=== PATIENT | female | born 1930 | race African-American/Black ===

== ENCOUNTER 2017-08-08 13:22 | Inpatient (IN) | payer MEDICARE, MEDICAID ==
[2017-08-08] VITALS (8 sets, daily range): BP systolic 105–159; BP diastolic 61–97
[~2017-08-08] VITALS: Ht 154.9 cm; Wt 54.4 kg
[2017-08-08] MEDS ORDERED: dilTIAZem HCl 25mg/5ml Inj IV ONE ×3 (14:00→17:30)
[2017-08-08 14:24] LABS: BASOPHILS % (AUTO) 1.1 % (0.0-2.0); EOSINOPHILS % (AUTO) 1.2 % (0.0-3.0); LYMPHOCYTES % (AUTO) 25.2 % (20.0-45.0); MEAN CORPUSCULAR HEMOGLOBIN 25.3 PG (27.0-31.0); MEAN CORPUSCULAR HGB CONC 30.4 G/DL (32.0-36.0); MEAN CORPUSCULAR VOLUME 83 FL (80-99); MONOCYTES % (AUTO) 5.4 % (1.0-10.0); NEUTROPHILS % (AUTO) 67.1 % (45.0-75.0); PLATELET COUNT 202 K/UL (150-450); RED BLOOD COUNT 5.95 M/UL (4.20-5.40); RED CELL DISTRIBUTION WIDTH 15.2 % (11.6-14.8); WHITE BLOOD COUNT 7.8 K/UL (4.8-10.8)
[2017-08-08 14:41] LABS: TROPONIN I < 0.30 ng/mL (<=0.30)
[2017-08-08] MEDS ORDERED: Mylanta II UD 30ml ORAL PRN (15:30)
[2017-08-08] MEDS ORDERED: LORazepam Inj 2mg/ml 1ml IV PRN (15:30)
[2017-08-08] MEDS ORDERED: Morphine Sulfate 2mg/ml Inj IVP PRN (15:30)
--- NOTE | 2017-08-08 15:58 | Diagnostic Imaging Report ---
Indication: SOB Technique: One view of the chest Comparison: none Findings: Lungs and pleural space are clear. Heart is enlarged. The aorta is calcified Impression: Cardiomegaly. No acute process
--- NOTE | 2017-08-08 16:01 | Emergency Room Report ---
History of Present Illness General Chief Complaint: Eye Problems Present Illness HPI This is a 86-year-old female who presented after increased left eye swelling and pain. The patient had prior history of dementia. Patient was sent in from [facility] for further evaluation. Patient had prior history of slight confusion. Patient is normally oriented x2 patient was noted to have a rapid heartbeat. She is normally a resident [facility]. Allergies: Coded Allergies: No Known Allergies (Unverified , 08/08/17) Patient History Reviewed Nursing Documentation: PMH: Agreed, PSxH: Agreed Nursing Documentation-PMH Hx Cardiac Problems: No - CHRONIC KIDNEY DISEASE Hx Hypertension: Yes Hx COPD: Yes History Of Psychiatric Problem: Yes Hx Cerebrovascular Accident: No - GERD Review of Systems All Other Systems: negative except mentioned in HPI Physical Exam Vital Signs Date Time Temp Pulse Resp B/P (MAP) Pulse Ox O2 Delivery O2 Flow Rate FiO2 08/08/17 13:10 97.3 104 16 131/86 98 Room Air Sp02 EP Interpretation: reviewed, normal General Appearance: normal inspection, alert, thin, Chronically Ill Head: atraumatic Eyes: bilateral eye other - nonreactive left pupil to left eye, with corneal erthema ENT: normal ENT inspection, hearing grossly normal, normal voice Neck: normal inspection, full range of motion, supple, no bony tend Respiratory: normal inspection, lungs clear, normal breath sounds, no respiratory distress, no retraction, no wheezing Cardiovascular #1: no edema, tachycardia Gastrointestinal: normal inspection, normal bowel sounds, non tender, soft, no guarding, no hernia Genitourinary: no CVA tenderness Musculoskeletal: normal inspection, back normal, normal range of motion Neurologic: normal inspection, alert, responsive, speech normal Psychiatric: normal inspection, judgement/insight normal, mood/affect normal Skin: normal inspection, normal color, no rash Medical Decision Making Diagnostic Impression: Primary Impression: Atrial fibrillation with RVR Additional Impression: Redness of left eye ER Course The patient presented for left eye redness and swelling. The patient is also noted to be in atrial fibrillation with rapid ventricular response. Differential diagnosis included but wasn't limited to glaucoma, iritis, corneal abrasion, bacterial conjunctivitis, viral conjunctivitis. Differential diagnosis included was not limited to myocardial infarction, congestive heart failure, dehydration among others.Because of complexity of patient's case laboratory testing and imaging studies were ordered. The patient was given IV Cardizem for atrial fibrillation chest x-ray one view read by radiologist showed lung and pleural space is clear with enlarged cardiac silhouette calcified aorta. The patient was noted to have some improvement in her great after a Cardizem however continued to be tachycardic intermittently Dr. Swapna Welch was contacted for inpatient management. Labs Test 08/08/17 14:12 White Blood Count 7.8 K/UL (4.8-10.8) Red Blood Count 5.95 M/UL (4.20-5.40) Hemoglobin 15.1 G/DL (12.0-16.0) Hematocrit 49.5 % (37.0-47.0) Mean Corpuscular Volume 83 FL (80-99) Mean Corpuscular Hemoglobin 25.3 PG (27.0-31.0) Mean Corpuscular Hemoglobin Concent 30.4 G/DL (32.0-36.0) Red Cell Distribution Width 15.2 % (11.6-14.8) Platelet Count 202 K/UL (150-450) Mean Platelet Volume 9.0 FL (6.5-10.1) Neutrophils (%) (Auto) 67.1 % (45.0-75.0) Lymphocytes (%) (Auto) 25.2 % (20.0-45.0) Monocytes (%) (Auto) 5.4 % (1.0-10.0) Eosinophils (%) (Auto) 1.2 % (0.0-3.0) Basophils (%) (Auto) 1.1 % (0.0-2.0) Troponin I < 0.30 ng/mL (<=0.30) EKG Diagnostic Results Rate: tachycardiac Rhythm: other - atrial Last Vital Signs Date Time Temp Pulse Resp B/P (MAP) Pulse Ox O2 Delivery O2 Flow Rate FiO2 08/08/17 15:33 97.3 123 22 144/93 99 Room Air Status: unchanged Disposition: ADMITTED INPATIENT Condition: Serious Referrals: JENINFER WELCH (PCP) Cory Hernandez Aug 08, 2017 16:01
[2017-08-08 17:16] LABS: ALANINE AMINOTRANSFERASE 12 U/L (3-33); ALBUMIN/GLOBULIN RATIO 1.2 (1.0-2.7); ANION GAP 11 (5-15); ASPARTATE AMINO TRANSFERASE 18 U/L (5-40); CALCIUM 9.6 mg/dL (8.6-10.2); CARBON DIOXIDE 27 mEQ/L (20-30); CHLORIDE 97 mEQ/L (98-107); HEMOLYSIS 143; LIPASE 27 U/L (< 60); POTASSIUM 4.9 mEQ/L (3.4-4.9); SODIUM 135 mEQ/L (135-145); TOTAL PROTEIN 6.8 g/dL (6.6-8.7)
[2017-08-08 17:27] LABS: CKMB < 1.5 ng/mL (< 3.8)
[2017-08-08] MEDS ORDERED: Brimonidine 0.2% Opth Sol LEFT EYE ONE (17:30)
[2017-08-08] MEDS ORDERED: Pred Forte 1% Opth Susp 1ml LEFT EYE ONE ×2 (17:30→21:00)
[2017-08-08 17:55] LABS: APPEARANCE,URINE SLIGHTLY CLOUDY; KETONES,URINE NEGATIVE (NEGATIVE); LEUKOCYTE ESTERASE ,URINE 1+ (NEGATIVE); NITRITE,URINE NEGATIVE (NEGATIVE); PH,URINE 5 (4.5-8.0); PROTEIN,URINE NEGATIVE (NEGATIVE); UROBILINOGEN,URINE NORMAL MG/DL (0.0-1.0)
[2017-08-08] MEDS ORDERED: acetaZOLAMIDE 500mg Inj IVP ONE (18:00)
[2017-08-08] MEDS ORDERED: Dorzolamide 2% 10ml Btl LEFT EYE ONE (18:00)
[2017-08-08] MEDS ORDERED: Timolol 0.5% Op Soln 2.5ml LEFT EYE SCH (18:00)
--- NOTE | 2017-08-08 18:03 | Consultation ---
Consult Note Consult Note Ophthalmology Emergency Room Consultation Referring Physician: Felipe Bacon/ Remington Hernandez Reason for Consultation: Red eye History of the present illness: The patient is 86-year-old woman who [facility] for possible conjunctivitis. She was found to be in atrial fibrillation with a rapid response and therefore admitted to [facility]. She notes some recent discomfort in her left eye and blurred vision. Past medical Hx: chronic kidney disease Medications: Current Medications Medications (Trade) Dose Ordered Sig/David Route PRN Reason Start Time Stop Time Status Last Admin Dose Admin Acetaminophen (Tylenol) 650 mg Q4H PRN ORAL fever>100.5 08/08/17 15:30 09/07/17 15:29 Al Hydroxide/Mg Hydroxide (Mylanta II) 30 ml Q6H PRN ORAL dyspepsia 08/08/17 15:30 09/07/17 15:29 Atropine Sulfate (Atropine Opth Daphnie) 1 drop QID LEFT EYE 08/08/17 21:00 09/07/17 20:59 UNV Brimonidine Tartrate (Alphagan) 1 drop TID ONCE LEFT EYE 08/08/17 18:15 08/08/17 18:16 UNV Dextrose (Dextrose 50%) STAT PRN IV Hypoglycemia 08/08/17 15:30 09/07/17 15:29 Dorzolamide HCl (Trusopt) 1 drop THREE TIMES A DAY LEFT EYE 08/08/17 18:15 09/07/17 18:14 UNV Lorazepam (Ativan 2mg/ml 1ml) 0.5 mg Q4H PRN IV For Anxiety 08/08/17 15:30 08/15/17 15:29 Morphine Sulfate (Morphine Sulfate) 1 mg Q4H PRN IVP For Pain 08/08/17 15:30 08/15/17 15:29 Ondansetron HCl (Zofran) 4 mg Q6H PRN IVP Nausea & Vomiting 08/08/17 15:30 09/07/17 15:29 Polyethylene Glycol (Miralax) 17 gm HSPRN PRN ORAL Constipation 08/08/17 21:00 09/07/17 20:59 Prednisolone Acetate (Pred Forte) 1 drop QID ONCE LEFT EYE 08/08/17 21:00 08/08/17 21:01 UNV Timolol Maleate (Timoptic 0.5% Op Soln) 1 drop BID LEFT EYE 08/08/17 18:15 09/07/17 18:14 UNV Timolol Maleate (Timoptic 0.5% Op Soln) 1 drop TWICE A DAY LEFT EYE 08/08/17 18:00 09/07/17 17:59 Zolpidem Tartrate (Ambien) 5 mg HSPRN PRN ORAL Insomnia 08/08/17 21:00 08/15/17 20:59 Allergies: NKDA Family History: Unknown Social History: [facility] resident Review of Systems: patient is a poor historian Examination: Mini-mental status examination revealed the patient to be awake and responsive to questioning, and oriented to person but not the date. Visual Acuity at near without correction: OD: 20/400 OS: inconsistent light perception Intraocular pressure (tonopen): OD: 13 mmHg OS: 61 mmHg (pt squeezing and uncooperative) Pupils: OD round and reactive, OS 5mm fixed Extra-ocular motility: full OU Confrontational visual bonilla: uncooperative Anterior Segments: External: dermatochalasis bilateral upper eyelids Conjunctivae: white and quiet OD, 2+ conjunctival injection OS Cornea: Clear OD, Edematous OS Anterior Chambers: Deep and Quiet OU Irides: Round and flat OD, rubeosis OS with posterior synechiae Lenses: nuclear sclerosis OU Dilated Fundus Examination (phenylephrine 2.5%), examination limited by patient cooperation Vitreous: Clear OD, poor view OS Optic Nerves: Sharp OD, poor view OS Vessels: Normal course and caliber OD, poor view OS Maculae: Flat OD, poor view OS Periphery: normal OD, poor view OS positive red reflex serum glucose 97 External photos were taken documenting the above findings . Assessment/Plan Impression: 1. Neovascular glaucoma, OS 2. Cataract OU Assessment and Plan: The patient is an 86-year-old woman who presented to the [place] ER with a red left eye. She has neovascular glaucoma with elevated intraocular pressure. The cause of this is unclear. She does not have a known history of diabetes and there is no obvious retinopathy in the right eye. Other causes could include a prior retinal vein occlusion or ocular ischemia. She was started on multiple drops in the left eye while in the emergency department to control the pressure including timolol, dorzolamide, brimonidine, prednisolone and atropine. She will also receive diamox. Follow up IOP check approximately 20 minutes after initiating the drops showed the IOP was slightly lower ~56 mmHg though the patient was squeezing her eye and the measurements were likely unreliable. Additional drops were given but the patient refused further IOP checks at that time. She was explained the serious nature of the condition. The patient is being admitted for management of her atrial fibrillation. Recommendations: - The patient has been written to continue on all of the above eye drops in the left eye (timolol, dorzolamide, brimonidine, prednisolone and atropine) - Consultation from the retina service has been requested to help evaluate for the cause of the glaucoma and determine additional treatment - The patient will require close Ophthalmology follow up upon discharge - Please call with any questions Thank you very much for this consultation Tyron Gallego M.D. [phone] TYRON GALLEGO Aug 08, 2017 18:03
[2017-08-08 18:04] LABS: BACTERIA,URINE FEW /HPF; RBC,URINE 0-2 /HPF (0 - 2); SQUAMOUS EPITHELIAL CELL,UR MODERATE /LPF (NONE/OCC)
[2017-08-08] MEDS ORDERED: CATAPRES0.1 MG ORAL (19:25)
[2017-08-08] MEDS ORDERED: MILK OF MA400 MG/51 ORAL (19:25)
[2017-08-08] MEDS ORDERED: MULTIVITAMINS1 EAC2 ORAL (19:25)
[2017-08-08] MEDS ORDERED: ARICEPT5 MG ORAL (19:25)
[2017-08-08] MEDS ORDERED: RENAGEL800 MG ORAL (19:25)
[2017-08-08] MEDS ORDERED: METOPROLOL TART25 MG ORAL (19:25)
[2017-08-08] MEDS ORDERED: ENALAPRIL MALEA10 MG ORAL (19:25)
[2017-08-08] MEDS ORDERED: ASPIR 8181 MG ORAL (19:25)
[2017-08-08] MEDS ORDERED: ATORVASTATIN CA20 MG ORAL (19:25)
[2017-08-08] MEDS ORDERED: PANTOPRAZOLE SO40 MG ORAL (19:25)
[2017-08-08] MEDS ORDERED: ACETAMINOPHEN325 M1 ORAL (19:25)
[2017-08-08] MEDS ORDERED: PROCARDIA XL30 MG ORAL (19:25)
[2017-08-08] MEDS ORDERED: XARELTO10 MG ORAL (19:25)
[2017-08-08] MEDS ORDERED: Miralax 17gm pkt ORAL PRN (21:00)
[2017-08-08] MEDS ORDERED: Zolpidem 5mg tab ORAL PRN (21:00)
--- NOTE | 2017-08-08 23:00 | History and Physical Report ---
DATE OF ADMISSION: 08/08/2017 TIME SEEN: At 2 p.m. ATTENDING PHYSICIAN: Felipe Bacon D.O. CONSULTANTS: 1. Dr. Gallego. 2. Lloyd Cisneros M.D. 3. Dr. Murdock. 4. Ratna Hendrickson M.D. 5. Simeon Johnson M.D. Chief Complaint: Left eye infection as well as atrial fibrillation and encephalopathy. Brief History: This is an 86-year-old female from [facility], comes in with left eye swollen and irritated. The patient came in and diagnosed above and also atrial fibrillation and encephalopathy, being admitted to telemetry for further care. Currently, calm in bed in the ER. No complaints. No chest pain. No shortness of breath. No nausea, vomiting, or diarrhea. PAST MEDICAL HISTORY: Includes hypertension and encephalopathy. PAST SURGICAL HISTORY: Unknown. MEDICATIONS: Include just Cardizem for now. ALLERGIES: Denies. Social History: Positive smoking. No alcohol. No intravenous drug abuse. FAMILY HISTORY: Noncontributory. PHYSICAL EXAMINATION: GENERAL: Calm in bed, oriented x2, and in no acute distress. Vital Signs: Temperature is 97 degrees, pulse 120, respirations 16, and blood pressure 173/88. HEENT: Shows left eye closed, slightly injected conjunctiva, and slight blurry vision. CARDIOVASCULAR: At this time, without murmur. LUNGS: Distant and clear. ABDOMEN: Bowel sounds are positive. Nontender and nondistended. EXTREMITIES: No cyanosis, clubbing, or edema. NEUROLOGIC: The patient moves all extremities, but slightly weak. Laboratory Data: Labs at this time show CBC is normal. BMP is pending. ASSESSMENT: 1. Left eye infection. 2. History of atrial fibrillation. 3. Hypertension. 4. Encephalopathy. PLAN: 1. Continue premedications. 2. Blood pressure control. 3. OT, PT, and dietary evaluation. 4. CBC and BMP in the morning. 5. Resume home medications. 6. Dr. Gallego, Dr. Cisneros, Dr. Murdock, Dr. Hendrickson, and Dr. Johnson to consult. 7. We will continue to follow this patient medically. Felipe Bacon D.O. DR: MESHA JOB#: [id number] CC:
[2017-08-09 04:15] VITALS: BP 135/73
[2017-08-09] MEDS: Brimonidine 0.2% Opth Sol LEFT EYE SCH ×3 (05:41→22:23)
[2017-08-09 07:29] LABS: EOSINOPHILS % (AUTO) 1.4 % (0.0-3.0); LYMPHOCYTES % (AUTO) 25.7 % (20.0-45.0); MEAN CORPUSCULAR HEMOGLOBIN 26.1 PG (27.0-31.0); MEAN CORPUSCULAR HGB CONC 31.1 G/DL (32.0-36.0); MEAN CORPUSCULAR VOLUME 84 FL (80-99); MEAN PLATELET VOLUME 9.5 FL (6.5-10.1); NEUTROPHILS % (AUTO) 63.8 % (45.0-75.0); PLATELET COUNT 195 K/UL (150-450); RED BLOOD COUNT 5.62 M/UL (4.20-5.40); RED CELL DISTRIBUTION WIDTH 15.2 % (11.6-14.8); WHITE BLOOD COUNT 7.7 K/UL (4.8-10.8)
[2017-08-09 08:05] VITALS: BP 109/57
[2017-08-09 08:05] LABS: ALANINE AMINOTRANSFERASE 10 U/L (3-33); ALBUMIN/GLOBULIN RATIO 1.3 (1.0-2.7); ANION GAP 14 (5-15); ASPARTATE AMINO TRANSFERASE 10 U/L (5-40); CALCIUM 9.8 mg/dL (8.6-10.2); CARBON DIOXIDE 23 mEQ/L (20-30); CHLORIDE 103 mEQ/L (98-107); CHOLESTEROL 177 mg/dL (< 200); CHOLESTEROL/HDL RATIO 2.9 (3.3-4.4); CREATININE 1.3 mg/dL (0.5-0.9); HEMOLYSIS 1; LDL CHOLESTEROL CALC 91 mg/dL (60-99); POTASSIUM 3.8 mEQ/L (3.4-4.9); SODIUM 140 mEQ/L (135-145); TOTAL PROTEIN 6.4 g/dL (6.6-8.7)
--- NOTE | 2017-08-09 08:56 | Consultation ---
Consult Note Consult Note Referring Physician: Tyron Gallego MD (Ophthalmology) Reason for Consultation: Neovascular glaucoma, left eye HPI:: The patient is 86-year-old woman who was brought in from her [facility] for possible conjunctivitis and was found to have elevated IOP and NVG OD. She has been treated with topical drops overnight. She notes drops have offered mild relief of symptoms. She is currently admitted as she was found to be in atrial fibrillation with a rapid response. She offers limited history and denies past ocular history of retinal disease or treatments. PMH: chronic kidney disease: Current Medications Medications (Trade) Dose Ordered Sig/David Route PRN Reason Start Time Stop Time Status Last Admin Dose Admin Acetaminophen (Tylenol) 650 mg Q4H PRN ORAL fever>100.5 08/08/17 15:30 09/07/17 15:29 Al Hydroxide/Mg Hydroxide (Mylanta II) 30 ml Q6H PRN ORAL dyspepsia 08/08/17 15:30 09/07/17 15:29 Atropine Sulfate (Atropine Opth Daphnie) 1 drop QID LEFT EYE 08/08/17 21:00 09/07/17 20:59 UNV Brimonidine Tartrate (Alphagan) 1 drop TID ONCE LEFT EYE 08/08/17 18:15 08/08/17 18:16 UNV Dextrose (Dextrose 50%) STAT PRN IV Hypoglycemia 08/08/17 15:30 09/07/17 15:29 Dorzolamide HCl (Trusopt) 1 drop THREE TIMES A DAY LEFT EYE 08/08/17 18:15 09/07/17 18:14 UNV Lorazepam (Ativan 2mg/ml 1ml) 0.5 mg Q4H PRN IV For Anxiety 08/08/17 15:30 08/15/17 15:29 Morphine Sulfate (Morphine Sulfate) 1 mg Q4H PRN IVP For Pain 08/08/17 15:30 08/15/17 15:29 Ondansetron HCl (Zofran) 4 mg Q6H PRN IVP Nausea & Vomiting 08/08/17 15:30 09/07/17 15:29 Polyethylene Glycol (Miralax) 17 gm HSPRN PRN ORAL Constipation 08/08/17 21:00 09/07/17 20:59 Prednisolone Acetate (Pred Forte) 1 drop QID ONCE LEFT EYE 08/08/17 21:00 08/08/17 21:01 UNV Timolol Maleate (Timoptic 0.5% Op Soln) 1 drop BID LEFT EYE 08/08/17 18:15 09/07/17 18:14 UNV Timolol Maleate (Timoptic 0.5% Op Soln) 1 drop TWICE A DAY LEFT EYE 08/08/17 18:00 09/07/17 17:59 Zolpidem Tartrate (Ambien) 5 mg HSPRN PRN ORAL Insomnia 08/08/17 21:00 08/15/17 20:59 Allergies: NKDA SH/FH: [facility] resident Exam: Patient agitated and limited VA OS: LP Tp OS: 35 mmHg (pt squeezing and uncooperative) Dilated OS PLE External: dermatochalasis bilateral upper eyelids Conjunctivae: white and quiet OD, 2+ conjunctival injection OS; melanosis Cornea: Clear OD, Edematous OS Anterior Chambers: Deep and Quiet OU Irides: Round and flat OD, rubeosis OS with posterior synechiae Lenses: nuclear sclerosis OU DFE Vitreous: Clear OD, B-scan performed OS Optic Nerves: Sharp OD, limited view OS Vessels: Normal course and caliber OD, limited view OS Maculae: Flat OD, limited view OS Periphery: Normal OD, limited view OS B-scan OS: No mass or RD . Assessment/Plan Assessment and Plan: 1. Neovacular glaucoma OS - likely due to retinal ischemia secondary to retinal vein occlusion or ocular ischemic syndrome; exam/pressures improved with topical medications, patient appears comfortable and not in distress from eye problem - Discussed the condition with the patient, however, she was agitated - will communicate with family if available - Recommend continue topical therapy at this time - Patient will require outpatient follow up for definitive therapy for intravitreal injection and/or laser treatment 2. Cataract OU - Outpatient care Thank you for involving me in her care Contact me as necessary [phone] Antolin Barreto M.D. Aug 09, 2017 08:56
[2017-08-09] MEDS ORDERED: Brimonidine 0.2% Opth Sol LEFT EYE ONE (09:00)
[2017-08-09] MEDS: Dorzolamide 2% 10ml Btl LEFT EYE SCH ×3 (09:00→17:55)
[2017-08-09] MEDS: Timolol 0.5% Op Soln 2.5ml LEFT EYE SCH ×2 (09:00→17:55)
[2017-08-09] MEDS: Pred Forte 1% Opth Susp 1ml LEFT EYE SCH ×4 (09:00→20:49)
[2017-08-09 11:29] VITALS: BP 130/66
--- NOTE | 2017-08-09 12:55 | History and Physical ---
History of Present Illness General Date patient seen: Aug 08, 2017 Reason for Hospitalization: Eye Problems Present Illness HPI 86-year-old female with hx of CAD, Afib, COPD, dementia, alf resident brought in with CC left eye swelling and pain. She was noted to have a rapid heartbeat. she received Cardizem IV in ER and transferred to telemetry. Pt will be seen by ophthalmology as well. Allergies: Coded Allergies: No Known Allergies (Unverified , 08/08/17) Medication History Scheduled Aspirin* (Aspir 81*), 81 MG ORAL DAILY, (Reported) Atorvastatin Calcium* (Atorvastatin Calcium*), 20 MG ORAL BEDTIME, (Reported) Clonidine Hcl* (Catapres*), 0.1 MG ORAL EVERY 6 HOURS, (Reported) Donepezil Hcl* (Aricept*), 5 MG ORAL DAILY, (Reported) Enalapril Maleate* (Enalapril Maleate*), 10 MG ORAL BEDTIME, (Reported) Metoprolol Tartrate* (Metoprolol Tartrate*), 25 MG ORAL EVERY 12 HOURS, ( Reported) Multivitamins* (Multivitamins*), 1 TAB ORAL DAILY, (Reported) Nifedipine Xl* (Procardia Xl*), 30 MG ORAL BID, (Reported) Pantoprazole* (Pantoprazole*), 40 MG ORAL DAILY, (Reported) Rivaroxaban (Xarelto*), 20 MG ORAL BEDTIME, (Reported) Sevelamer Hcl (Renagel), 800 MG ORAL THREE TIMES A DAY, (Reported) Scheduled PRN Acetaminophen* (Acetaminophen 325MG Tablet*), 325 MG ORAL Q4H PRN for Pain Scale (3-5), (Reported) Magnesium Hydroxide* (Milk Of Magnesia*), 30 ML ORAL for Constipation, (Reported ) Patient History Healthcare decision maker Resuscitation status Full Code Advanced Directive on File Yes Past Medical/Surgical History Past Medical/Surgical History: (1) Alzheimer's dementia (2) CAD (coronary artery disease) (3) Atrial fibrillation Review of Systems All Other Systems: negative except mentioned in HPI Physical Exam General Appearance: cachetic Lines, tubes and drains: peripheral HEENT: normocephalic, atraumatic Neck: non-tender, normal alignment Respiratory/Chest: chest wall non-tender, lungs clear Breasts: no masses Cardiovascular/Chest: normal rate Abdomen: normal bowel sounds, non tender Genitourinary/Rectal: normal genital exam Extremities: normal range of motion, non-tender Skin Exam: normal pigmentation Neurologic: ergonomics consultant II-XII grossly normal Last 24 Hour Vital Signs Date Time Temp Pulse Resp B/P (MAP) Pulse Ox O2 Delivery O2 Flow Rate FiO2 08/09/17 11:29 98.1 71 18 130/66 100 Room Air 08/09/17 08:05 98.2 85 18 109/57 100 Room Air 08/09/17 04:15 97.7 84 22 135/73 96 Room Air 08/09/17 04:00 117 08/09/17 00:00 103 08/08/17 23:59 97.0 62 20 122/72 98 Room Air 08/08/17 20:00 97 08/08/17 19:42 90 18 111/59 100 08/08/17 19:31 97.3 118 25 136/75 100 Room Air 08/08/17 18:00 90 25 105/61 99 Room Air 08/08/17 17:37 135 159/84 08/08/17 16:00 131 25 156/81 100 Room Air 08/08/17 15:33 97.3 123 22 144/93 99 Room Air 08/08/17 15:20 125 159/97 08/08/17 15:12 140 30 159/97 100 Room Air 08/08/17 14:48 140 22 132/65 100 Room Air 08/08/17 14:32 120 173/88 08/08/17 13:35 135 16 132/72 100 Room Air 08/08/17 13:10 97.3 104 16 131/86 98 Room Air Intake and Output 08/09/17 08/10/17 19:00 07:00 Intake Total 440 ml Balance 440 ml Intake Oral 440 ml Laboratory Tests Test 08/08/17 14:00 08/08/17 14:12 08/08/17 16:35 08/09/17 04:45 Urine Color Pale yellow Urine Appearance Slightly cloudy Urine pH 5 (4.5-8.0) Urine Specific [place] 1.015 (1.005-1.035) Urine Protein Negative (NEGATIVE) Urine Glucose (UA) Negative (NEGATIVE) Urine Ketones Negative (NEGATIVE) Urine Occult Blood Negative (NEGATIVE) Urine Nitrite Negative (NEGATIVE) Urine Bilirubin Negative (NEGATIVE) Urine Urobilinogen Normal MG/DL (0.0-1.0) Urine Leukocyte Esterase 1+ (NEGATIVE) H Urine RBC 0-2 /HPF (0 - 2) Urine WBC 2-4 /HPF (0 - 2) Urine Squamous Epithelial Cells Moderate /LPF (NONE/OCC) H Urine Bacteria Few /HPF (NONE) White Blood Count 7.8 K/UL (4.8-10.8) 7.7 K/UL (4.8-10.8) Red Blood Count 5.95 M/UL (4.20-5.40) H 5.62 M/UL (4.20-5.40) H Hemoglobin 15.1 G/DL (12.0-16.0) 14.7 G/DL (12.0-16.0) Hematocrit 49.5 % (37.0-47.0) H 47.2 % (37.0-47.0) H Mean Corpuscular Volume 83 FL (80-99) 84 FL (80-99) Mean Corpuscular Hemoglobin 25.3 PG (27.0-31.0) L 26.1 PG (27.0-31.0) L Mean Corpuscular Hemoglobin Concent 30.4 G/DL (32.0-36.0) L 31.1 G/DL (32.0-36.0) L Red Cell Distribution Width 15.2 % (11.6-14.8) H 15.2 % (11.6-14.8) H Platelet Count 202 K/UL (150-450) 195 K/UL (150-450) Mean Platelet Volume 9.0 FL (6.5-10.1) 9.5 FL (6.5-10.1) Neutrophils (%) (Auto) 67.1 % (45.0-75.0) 63.8 % (45.0-75.0) Lymphocytes (%) (Auto) 25.2 % (20.0-45.0) 25.7 % (20.0-45.0) Monocytes (%) (Auto) 5.4 % (1.0-10.0) 8.0 % (1.0-10.0) Eosinophils (%) (Auto) 1.2 % (0.0-3.0) 1.4 % (0.0-3.0) Basophils (%) (Auto) 1.1 % (0.0-2.0) 1.0 % (0.0-2.0) Troponin I < 0.30 ng/mL (<=0.30) Sodium Level 135 mEQ/L (135-145) 140 mEQ/L (135-145) Potassium Level 4.9 mEQ/L (3.4-4.9) 3.8 mEQ/L (3.4-4.9) Chloride Level 97 mEQ/L (98-107) L 103 mEQ/L (98-107) Carbon Dioxide Level 27 mEQ/L (20-30) 23 mEQ/L (20-30) Anion Gap 11 (5-15) 14 (5-15) Blood Urea Nitrogen 14 mg/dL (7-23) 19 mg/dL (7-23) Creatinine 1.0 mg/dL (0.5-0.9) H 1.3 mg/dL (0.5-0.9) H Estimat Glomerular Filtration Rate mL/min (>60) mL/min (>60) Glucose Level 97 mg/dL (74-106) 105 mg/dL (74-106) Calcium Level 9.6 mg/dL (8.6-10.2) 9.8 mg/dL (8.6-10.2) Total Bilirubin 0.4 mg/dL (0.0-1.2) 0.4 mg/dL (0.0-1.2) Aspartate Amino Transf (AST/SGOT) 18 U/L (5-40) 10 U/L (5-40) Alanine Aminotransferase (ALT/SGPT) 12 U/L (3-33) 10 U/L (3-33) Alkaline Phosphatase 72 U/L (35-104) 88 U/L (35-104) Total Creatine Kinase 46 U/L (26-140) Creatine Kinase MB < 1.5 ng/mL (< 3.8) Creatine Kinase MB Relative Index Pro-B-Type Natriuretic Peptide 3292 pg/mL (0-450) H Total Protein 6.8 g/dL (6.6-8.7) 6.4 g/dL (6.6-8.7) L Albumin 3.8 g/dL (3.5-5.2) 3.7 g/dL (3.5-5.2) Globulin 3.0 g/dL 2.7 g/dL Albumin/Globulin Ratio 1.2 (1.0-2.7) 1.3 (1.0-2.7) Lipase 27 U/L (< 60) Triglycerides Level 126 mg/dL (< 150) Cholesterol Level 177 mg/dL (< 200) LDL Cholesterol 91 mg/dL (60-99) HDL Cholesterol 61 mg/dL (> 60) H Cholesterol/HDL Ratio 2.9 (3.3-4.4) L Thyroid Stimulating Hormone (TSH) 2.580 uIU/mL (0.300-4.500) Height (Feet): 5 Height (Inches): 1.00 Weight (Pounds): 120 Medications Current Medications Medications (Trade) Dose Ordered Sig/David Route PRN Reason Start Time Stop Time Status Last Admin Dose Admin Acetaminophen (Tylenol) 650 mg Q4H PRN ORAL fever>100.5 08/08/17 15:30 09/07/17 15:29 Al Hydroxide/Mg Hydroxide (Mylanta II) 30 ml Q6H PRN ORAL dyspepsia 08/08/17 15:30 09/07/17 15:29 Atropine Sulfate (Atropine Opth Daphnie) 1 drop QID LEFT EYE 08/08/17 21:00 09/07/17 20:59 08/08/17 21:30 Brimonidine Tartrate (Alphagan) 1 drop Q8HR LEFT EYE 08/09/17 06:00 09/08/17 05:59 08/09/17 05:41 Dextrose (Dextrose 50%) STAT PRN IV Hypoglycemia 08/08/17 15:30 09/07/17 15:29 Dorzolamide HCl (Trusopt) 1 drop THREE TIMES A DAY LEFT EYE 08/09/17 09:00 09/08/17 08:59 Lorazepam (Ativan 2mg/ml 1ml) 0.5 mg Q4H PRN IV For Anxiety 08/08/17 15:30 08/15/17 15:29 Morphine Sulfate (Morphine Sulfate) 1 mg Q4H PRN IVP For Pain 08/08/17 15:30 08/15/17 15:29 Ondansetron HCl (Zofran) 4 mg Q6H PRN IVP Nausea & Vomiting 9/27/17 15:30 09/07/17 15:29 Polyethylene Glycol (Miralax) 17 gm HSPRN PRN ORAL Constipation 08/08/17 21:00 09/07/17 20:59 Prednisolone Acetate (Pred Forte) 1 drop QID LEFT EYE 08/09/17 09:00 09/08/17 08:59 Timolol Maleate (Timoptic 0.5% Op Soln) 1 drop BID LEFT EYE 08/09/17 09:00 09/08/17 08:59 Zolpidem Tartrate (Ambien) 5 mg HSPRN PRN ORAL Insomnia 08/08/17 21:00 08/15/17 20:59 Assessment/Plan Problem List: (1) Atrial fibrillation with RVR ICD Codes: I48.91 - Unspecified atrial fibrillation SNOMED: 401790205120326 (2) Redness of left eye ICD Codes: H57.8 - Other specified disorders of eye and adnexa SNOMED: 69976784 (3) COPD (chronic obstructive pulmonary disease) ICD Codes: J44.9 - Chronic obstructive pulmonary disease, unspecified SNOMED: 19962597 (4) Dementia ICD Codes: F03.90 - Unspecified dementia without behavioral disturbance SNOMED: 38416676 (5) CAD (coronary artery disease) ICD Codes: I25.10 - Atherosclerotic heart disease of [place] coronary artery without angina pectoris SNOMED: 06636934 (6) Alzheimer's dementia ICD Codes: G30.9 - Alzheimer's disease, unspecified SNOMED: 38317891 Assessment/Plan telemetry rate control with iv cardizem echo cardiology to see continue anticoagulant if ok with cardio and ophthalmology TRACI SHARP Aug 09, 2017 12:55
--- NOTE | 2017-08-09 12:56 | Pulmonology Progress Note ---
Assessment/Plan Problems: (1) Atrial fibrillation with RVR (2) Redness of left eye (3) COPD (chronic obstructive pulmonary disease) (4) Dementia (5) CAD (coronary artery disease) (6) Alzheimer's dementia Assessment/Plan heart rate better check echo f/u ophthalmology recommendations keep in teli Subjective ROS Limited/Unobtainable: No Interval Events: heart rate better Allergies: Coded Allergies: No Known Allergies (Unverified , 08/08/17) Objective Last 24 Hour Vital Signs Date Time Temp Pulse Resp B/P (MAP) Pulse Ox O2 Delivery O2 Flow Rate FiO2 08/09/17 11:29 98.1 71 18 130/66 100 Room Air 08/09/17 08:05 98.2 85 18 109/57 100 Room Air 08/09/17 04:15 97.7 84 22 135/73 96 Room Air 08/09/17 04:00 117 08/09/17 00:00 103 08/08/17 23:59 97.0 62 20 122/72 98 Room Air 08/08/17 20:00 97 08/08/17 19:42 90 18 111/59 100 08/08/17 19:31 97.3 118 25 136/75 100 Room Air 08/08/17 18:00 90 25 105/61 99 Room Air 08/08/17 17:37 135 159/84 08/08/17 16:00 131 25 156/81 100 Room Air 08/08/17 15:33 97.3 123 22 144/93 99 Room Air 08/08/17 15:20 125 159/97 08/08/17 15:12 140 30 159/97 100 Room Air 08/08/17 14:48 140 22 132/65 100 Room Air 08/08/17 14:32 120 173/88 08/08/17 13:35 135 16 132/72 100 Room Air 08/08/17 13:10 97.3 104 16 131/86 98 Room Air Intake and Output 08/09/17 08/10/17 19:00 07:00 Intake Total 440 ml Balance 440 ml Intake Oral 440 ml General Appearance: WD/WN HEENT: normocephalic, atraumatic Respiratory/Chest: chest wall non-tender, lungs clear Breasts: no masses Cardiovascular: normal peripheral pulses Abdomen: normal bowel sounds, no organomegaly Genitourinary: normal external genitalia Extremities: no clubbing Skin: no rash Laboratory Tests 08/08/17 14:00: Urine Color Pale yellow, Urine Appearance Slightly cloudy, Urine pH 5, Urine Specific [place] 1.015, Urine Protein Negative, Urine Glucose (UA) Negative, Urine Ketones Negative, Urine Occult Blood Negative, Urine Nitrite Negative, Urine Bilirubin Negative, Urine Urobilinogen Normal, Urine Leukocyte Esterase 1+ H, Urine RBC 0-2, Urine WBC 2-4, Urine Squamous Epithelial Cells ModerateH, Urine Bacteria Few 08/08/17 14:12: White Blood Count 7.8, Red Blood Count 5.95H, Hemoglobin 15.1, Hematocrit 49.5H , Mean Corpuscular Volume 83, Mean Corpuscular Hemoglobin 25.3L, Mean Corpuscular Hemoglobin Concent 30.4L, Red Cell Distribution Width 15.2H, Platelet Count 202, Mean Platelet Volume 9.0, Neutrophils (%) (Auto) 67.1, Lymphocytes (%) (Auto) 25.2, Monocytes (%) (Auto) 5.4, Eosinophils (%) (Auto) 1.2, Basophils (%) (Auto) 1.1, Troponin I < 0.30 08/08/17 16:35: Sodium Level 135, Potassium Level 4.9, Chloride Level 97L, Carbon Dioxide Level 27, Anion Gap 11, Blood Urea Nitrogen 14, Creatinine 1.0H, Estimat Glomerular Filtration Rate , Glucose Level 97, Calcium Level 9.6, Total Bilirubin 0.4, Aspartate Amino Transf (AST/SGOT) 18, Alanine Aminotransferase (ALT/SGPT) 12, Alkaline Phosphatase 72, Total Creatine Kinase 46, Creatine Kinase MB < 1.5, Creatine Kinase MB Relative Index , Pro-B-Type Natriuretic Peptide 3292H, Total Protein 6.8, Albumin 3.8, Globulin 3.0, Albumin/Globulin Ratio 1.2, Lipase 27 08/09/17 04:45: White Blood Count 7.7, Red Blood Count 5.62H, Hemoglobin 14.7, Hematocrit 47.2H , Mean Corpuscular Volume 84, Mean Corpuscular Hemoglobin 26.1L, Mean Corpuscular Hemoglobin Concent 31.1L, Red Cell Distribution Width 15.2H, Platelet Count 195, Mean Platelet Volume 9.5, Neutrophils (%) (Auto) 63.8, Lymphocytes (%) (Auto) 25.7, Monocytes (%) (Auto) 8.0, Eosinophils (%) (Auto) 1.4, Basophils (%) (Auto) 1.0, Sodium Level 140, Potassium Level 3.8, Chloride Level 103, Carbon Dioxide Level 23, Anion Gap 14, Blood Urea Nitrogen 19, Creatinine 1.3H, Estimat Glomerular Filtration Rate , Glucose Level 105, Calcium Level 9.8, Total Bilirubin 0.4, Aspartate Amino Transf (AST/SGOT) 10, Alanine Aminotransferase (ALT/SGPT) 10, Alkaline Phosphatase 88, Total Protein 6.4L, Albumin 3.7, Globulin 2.7, Albumin/Globulin Ratio 1.3, Triglycerides Level 126, Cholesterol Level 177, LDL Cholesterol 91, HDL Cholesterol 61H, Cholesterol/HDL Ratio 2.9L, Thyroid Stimulating Hormone (TSH) 2.580 Current Medications Medications (Trade) Dose Ordered Sig/David Route PRN Reason Start Time Stop Time Status Last Admin Dose Admin Acetaminophen (Tylenol) 650 mg Q4H PRN ORAL fever>100.5 08/08/17 15:30 09/07/17 15:29 Al Hydroxide/Mg Hydroxide (Mylanta II) 30 ml Q6H PRN ORAL dyspepsia 08/08/17 15:30 09/07/17 15:29 Atropine Sulfate (Atropine Opth Daphnie) 1 drop QID LEFT EYE 08/08/17 21:00 09/07/17 20:59 08/08/17 21:30 Brimonidine Tartrate (Alphagan) 1 drop Q8HR LEFT EYE 08/09/17 06:00 09/08/17 05:59 08/09/17 05:41 Dextrose (Dextrose 50%) STAT PRN IV Hypoglycemia 08/08/17 15:30 09/07/17 15:29 Dorzolamide HCl (Trusopt) 1 drop THREE TIMES A DAY LEFT EYE 08/09/17 09:00 09/08/17 08:59 Lorazepam (Ativan 2mg/ml 1ml) 0.5 mg Q4H PRN IV For Anxiety 08/08/17 15:30 08/15/17 15:29 Morphine Sulfate (Morphine Sulfate) 1 mg Q4H PRN IVP For Pain 08/08/17 15:30 08/15/17 15:29 Ondansetron HCl (Zofran) 4 mg Q6H PRN IVP Nausea & Vomiting 08/08/17 15:30 09/07/17 15:29 Polyethylene Glycol (Miralax) 17 gm HSPRN PRN ORAL Constipation 08/08/17 21:00 09/07/17 20:59 Prednisolone Acetate (Pred Forte) 1 drop QID LEFT EYE 08/09/17 09:00 09/08/17 08:59 Timolol Maleate (Timoptic 0.5% Op Soln) 1 drop BID LEFT EYE 08/09/17 09:00 09/08/17 08:59 Zolpidem Tartrate (Ambien) 5 mg HSPRN PRN ORAL Insomnia 08/08/17 21:00 08/15/17 20:59 TRACI SHARP Aug 09, 2017 12:56
--- NOTE | 2017-08-09 13:15 | General Progress Note ---
Assessment/Plan Problem List: (1) UTI (urinary tract infection) ICD Codes: N39.0 - Urinary tract infection, site not specified SNOMED: 10589401 (2) HTN (hypertension) ICD Codes: I10 - Essential (primary) hypertension SNOMED: 19074295 (3) Redness of left eye ICD Codes: H57.8 - Other specified disorders of eye and adnexa SNOMED: 06223130 (4) Atrial fibrillation with RVR ICD Codes: I48.91 - Unspecified atrial fibrillation SNOMED: 595334540330635 (5) CAD (coronary artery disease) ICD Codes: I25.10 - Atherosclerotic heart disease of [place] coronary artery without angina pectoris SNOMED: 84016461 (6) Alzheimer's dementia ICD Codes: G30.9 - Alzheimer's disease, unspecified SNOMED: 90750735 (7) COPD (chronic obstructive pulmonary disease) ICD Codes: J44.9 - Chronic obstructive pulmonary disease, unspecified SNOMED: 28960369 (8) Dementia ICD Codes: F03.90 - Unspecified dementia without behavioral disturbance SNOMED: 55374636 Status: stable, progressing, tolerating diet Assessment/Plan ot pt diet abx ophthal f/u abx cbc bmp am Subjective Constitutional: Reports: weakness Allergies: Coded Allergies: No Known Allergies (Unverified , 08/08/17) All Systems: reviewed and negative except above Subjective sl anxious in bed Objective Last 24 Hour Vital Signs Date Time Temp Pulse Resp B/P (MAP) Pulse Ox O2 Delivery O2 Flow Rate FiO2 08/09/17 12:00 97 08/09/17 11:29 98.1 71 18 130/66 100 Room Air 08/09/17 08:05 98.2 85 18 109/57 100 Room Air 08/09/17 08:00 127 08/09/17 04:15 97.7 84 22 135/73 96 Room Air 08/09/17 04:00 117 08/09/17 00:00 103 08/08/17 23:59 97.0 62 20 122/72 98 Room Air 08/08/17 20:00 97 08/08/17 19:42 90 18 111/59 100 08/08/17 19:31 97.3 118 25 136/75 100 Room Air 08/08/17 18:00 90 25 105/61 99 Room Air 08/08/17 17:37 135 159/84 08/08/17 16:00 131 25 156/81 100 Room Air 08/08/17 15:33 97.3 123 22 144/93 99 Room Air 08/08/17 15:20 125 159/97 08/08/17 15:12 140 30 159/97 100 Room Air 08/08/17 14:48 140 22 132/65 100 Room Air 08/08/17 14:32 120 173/88 08/08/17 13:35 135 16 132/72 100 Room Air Intake and Output 08/09/17 08/10/17 19:00 07:00 Intake Total 440 ml Balance 440 ml Intake Oral 440 ml Laboratory Tests 08/08/17 14:00: Urine Color Pale yellow, Urine Appearance Slightly cloudy, Urine pH 5, Urine Specific [place] 1.015, Urine Protein Negative, Urine Glucose (UA) Negative, Urine Ketones Negative, Urine Occult Blood Negative, Urine Nitrite Negative, Urine Bilirubin Negative, Urine Urobilinogen Normal, Urine Leukocyte Esterase 1+ H, Urine RBC 0-2, Urine WBC 2-4, Urine Squamous Epithelial Cells ModerateH, Urine Bacteria Few 08/08/17 14:12: White Blood Count 7.8, Red Blood Count 5.95H, Hemoglobin 15.1, Hematocrit 49.5H , Mean Corpuscular Volume 83, Mean Corpuscular Hemoglobin 25.3L, Mean Corpuscular Hemoglobin Concent 30.4L, Red Cell Distribution Width 15.2H, Platelet Count 202, Mean Platelet Volume 9.0, Neutrophils (%) (Auto) 67.1, Lymphocytes (%) (Auto) 25.2, Monocytes (%) (Auto) 5.4, Eosinophils (%) (Auto) 1.2, Basophils (%) (Auto) 1.1, Troponin I < 0.30 08/08/17 16:35: Sodium Level 135, Potassium Level 4.9, Chloride Level 97L, Carbon Dioxide Level 27, Anion Gap 11, Blood Urea Nitrogen 14, Creatinine 1.0H, Estimat Glomerular Filtration Rate , Glucose Level 97, Calcium Level 9.6, Total Bilirubin 0.4, Aspartate Amino Transf (AST/SGOT) 18, Alanine Aminotransferase (ALT/SGPT) 12, Alkaline Phosphatase 72, Total Creatine Kinase 46, Creatine Kinase MB < 1.5, Creatine Kinase MB Relative Index , Pro-B-Type Natriuretic Peptide 3292H, Total Protein 6.8, Albumin 3.8, Globulin 3.0, Albumin/Globulin Ratio 1.2, Lipase 27 08/09/17 04:45: White Blood Count 7.7, Red Blood Count 5.62H, Hemoglobin 14.7, Hematocrit 47.2H , Mean Corpuscular Volume 84, Mean Corpuscular Hemoglobin 26.1L, Mean Corpuscular Hemoglobin Concent 31.1L, Red Cell Distribution Width 15.2H, Platelet Count 195, Mean Platelet Volume 9.5, Neutrophils (%) (Auto) 63.8, Lymphocytes (%) (Auto) 25.7, Monocytes (%) (Auto) 8.0, Eosinophils (%) (Auto) 1.4, Basophils (%) (Auto) 1.0, Sodium Level 140, Potassium Level 3.8, Chloride Level 103, Carbon Dioxide Level 23, Anion Gap 14, Blood Urea Nitrogen 19, Creatinine 1.3H, Estimat Glomerular Filtration Rate , Glucose Level 105, Calcium Level 9.8, Total Bilirubin 0.4, Aspartate Amino Transf (AST/SGOT) 10, Alanine Aminotransferase (ALT/SGPT) 10, Alkaline Phosphatase 88, Total Protein 6.4L, Albumin 3.7, Globulin 2.7, Albumin/Globulin Ratio 1.3, Triglycerides Level 126, Cholesterol Level 177, LDL Cholesterol 91, HDL Cholesterol 61H, Cholesterol/HDL Ratio 2.9L, Thyroid Stimulating Hormone (TSH) 2.580 Height (Feet): 5 Height (Inches): 1.00 Weight (Pounds): 120 General Appearance: lethargic EENT: normal ENT inspection Neck: normal alignment Cardiovascular: normal peripheral pulses, normal rate, regular rhythm Respiratory/Chest: chest wall non-tender, lungs clear, normal breath sounds Abdomen: normal bowel sounds, non tender, soft Extremities: normal inspection Edema: no edema noted Arm (L), no edema noted Arm (R), no edema noted Leg (L), no edema noted Leg (R), no edema noted Pedal (L), no edema noted Pedal (R), no edema noted Generalized Neurologic: responsive, motor weakness Skin: normal pigmentation, warm/dry JENNIFER WELCH Aug 09, 2017 13:15
[2017-08-09 15:24] VITALS: BP 129/79
--- NOTE | 2017-08-09 18:16 | Infectious Diseases Prog Note ---
Assessment/Plan Problems: (1) Redness of left eye Assessment & Plan: no infectious etiology but ischemic retina and cataract, further management as per fulfillment associate (2) Atrial fibrillation Assessment & Plan: continue rate control meds, cards is following Subjective Allergies: Coded Allergies: No Known Allergies (Unverified , 08/08/17) Objective Vital Signs Last 24 Hour Vital Signs Date Time Temp Pulse Resp B/P (MAP) Pulse Ox O2 Delivery O2 Flow Rate FiO2 08/09/17 15:24 98.4 113 18 129/79 100 Room Air 08/09/17 12:00 97 08/09/17 11:29 98.1 71 18 130/66 100 Room Air 08/09/17 08:05 98.2 85 18 109/57 100 Room Air 08/09/17 08:00 127 08/09/17 04:15 97.7 84 22 135/73 96 Room Air 08/09/17 04:00 117 08/09/17 00:00 103 08/08/17 23:59 97.0 62 20 122/72 98 Room Air 08/08/17 20:00 97 08/08/17 19:42 90 18 111/59 100 08/08/17 19:31 97.3 118 25 136/75 100 Room Air Height (Feet): 5 Height (Inches): 1.00 Weight (Pounds): 120 Laboratory Tests Test 08/09/17 04:45 White Blood Count 7.7 K/UL (4.8-10.8) Red Blood Count 5.62 M/UL (4.20-5.40) H Hemoglobin 14.7 G/DL (12.0-16.0) Hematocrit 47.2 % (37.0-47.0) H Mean Corpuscular Volume 84 FL (80-99) Mean Corpuscular Hemoglobin 26.1 PG (27.0-31.0) L Mean Corpuscular Hemoglobin Concent 31.1 G/DL (32.0-36.0) L Red Cell Distribution Width 15.2 % (11.6-14.8) H Platelet Count 195 K/UL (150-450) Mean Platelet Volume 9.5 FL (6.5-10.1) Neutrophils (%) (Auto) 63.8 % (45.0-75.0) Lymphocytes (%) (Auto) 25.7 % (20.0-45.0) Monocytes (%) (Auto) 8.0 % (1.0-10.0) Eosinophils (%) (Auto) 1.4 % (0.0-3.0) Basophils (%) (Auto) 1.0 % (0.0-2.0) Sodium Level 140 mEQ/L (135-145) Potassium Level 3.8 mEQ/L (3.4-4.9) Chloride Level 103 mEQ/L (98-107) Carbon Dioxide Level 23 mEQ/L (20-30) Anion Gap 14 (5-15) Blood Urea Nitrogen 19 mg/dL (7-23) Creatinine 1.3 mg/dL (0.5-0.9) H Estimat Glomerular Filtration Rate mL/min (>60) Glucose Level 105 mg/dL (74-106) Calcium Level 9.8 mg/dL (8.6-10.2) Total Bilirubin 0.4 mg/dL (0.0-1.2) Aspartate Amino Transf (AST/SGOT) 10 U/L (5-40) Alanine Aminotransferase (ALT/SGPT) 10 U/L (3-33) Alkaline Phosphatase 88 U/L (35-104) Total Protein 6.4 g/dL (6.6-8.7) L Albumin 3.7 g/dL (3.5-5.2) Globulin 2.7 g/dL Albumin/Globulin Ratio 1.3 (1.0-2.7) Triglycerides Level 126 mg/dL (< 150) Cholesterol Level 177 mg/dL (< 200) LDL Cholesterol 91 mg/dL (60-99) HDL Cholesterol 61 mg/dL (> 60) H Cholesterol/HDL Ratio 2.9 (3.3-4.4) L Thyroid Stimulating Hormone (TSH) 2.580 uIU/mL (0.300-4.500) Current Medications Medications (Trade) Dose Ordered Sig/David Route PRN Reason Start Time Stop Time Status Last Admin Dose Admin Acetaminophen (Tylenol) 650 mg Q4H PRN ORAL fever>100.5 08/08/17 15:30 09/07/17 15:29 Al Hydroxide/Mg Hydroxide (Mylanta II) 30 ml Q6H PRN ORAL dyspepsia 08/08/17 15:30 09/07/17 15:29 Atropine Sulfate (Atropine Opth Daphnie) 1 drop QID LEFT EYE 08/08/17 21:00 09/07/17 20:59 08/09/17 17:55 Brimonidine Tartrate (Alphagan) 1 drop Q8HR LEFT EYE 08/09/17 06:00 09/08/17 05:59 08/09/17 13:38 Dextrose (Dextrose 50%) STAT PRN IV Hypoglycemia 08/08/17 15:30 09/07/17 15:29 Dorzolamide HCl (Trusopt) 1 drop THREE TIMES A DAY LEFT EYE 08/09/17 09:00 09/08/17 08:59 08/09/17 17:55 Lorazepam (Ativan 2mg/ml 1ml) 0.5 mg Q4H PRN IV For Anxiety 08/08/17 15:30 08/15/17 15:29 Morphine Sulfate (Morphine Sulfate) 1 mg Q4H PRN IVP For Pain 08/08/17 15:30 08/15/17 15:29 Ondansetron HCl (Zofran) 4 mg Q6H PRN IVP Nausea & Vomiting 08/08/17 15:30 09/07/17 15:29 Polyethylene Glycol (Miralax) 17 gm HSPRN PRN ORAL Constipation 08/08/17 21:00 09/07/17 20:59 Prednisolone Acetate (Pred Forte) 1 drop QID LEFT EYE 08/09/17 09:00 09/08/17 08:59 08/09/17 17:57 Timolol Maleate (Timoptic 0.5% Op Soln) 1 drop BID LEFT EYE 08/09/17 09:00 09/08/17 08:59 08/09/17 17:55 Zolpidem Tartrate (Ambien) 5 mg HSPRN PRN ORAL Insomnia 08/08/17 21:00 08/15/17 20:59 Val Kaur M.D. Aug 09, 2017 18:16
[2017-08-09 20:31] VITALS: BP 131/76
[2017-08-09] MEDS: Atorvastatin 20mg tab ORAL SCH ×2 (20:48→21:00)
[2017-08-09] MEDS: Metoprolol Tartrate 50mg tab ORAL SCH ×2 (20:48→21:00)
--- NOTE | 2017-08-09 22:15 | Consultation ---
DATE OF CONSULTATION: 08/09/2017 INFECTIOUS DISEASE CONSULTATION CONSULTING PHYSICIAN: Val Kaur M.D. REQUESTING PHYSICIAN: Felipe Bacon D.O. Reason For Consultation: Left eye redness, recommendation for antibiotics therapy and management. History Of Present Illness: The patient is an 86-year-old female with history of COPD, hypertension, and psych disorder, who was brought in to [facility] for increasing left eye swelling, redness, and pain. The patient has a history of dementia. She was sent from [facility] for evaluation. The patient is confused, poor historian, cannot give any history. History was mainly obtained from the medical records. The patient was found to have redness around the iris on her sclera with opaque pupil concerning for cataract. So, I was consulted by the primary provider for possible eye infection and antibiotics treatment. Past Medical History: Significant for hypertension, COPD, and psych disorder. PAST SURGICAL HISTORY: Negative. Medications: She is on Tylenol, Alphagan, Trusopt, prednisolone, MiraLAX, Ambien, and atropine. ALLERGIES: No known drug allergies. Social History: Unable to obtain. She is a [facility] resident. No recent drugs, tobacco, or alcohol. FAMILY HISTORY: Unable to obtain. PHYSICAL EXAMINATION: Vital Signs: Temperature 98.1 degrees, pulse 71, respirations 18, blood pressure 130/66, and saturation 100% on room air. General: An elderly female, demented, up in bed, alert, and not in distress. HEENT: Normocephalic and atraumatic. Pupils reactive to light on the right side. Left pupil is opaque, cloudy, not reactive to light with redness in the sclera around the iris. NECK: Supple. No lymphadenopathy. CARDIOVASCULAR: Regular rate and rhythm. No murmur. LUNGS: Clear bilaterally. No wheezing or rhonchi. ABDOMEN: Soft, nontender, and nondistended. Normal bowel sounds. EXTREMITIES: No edema or cyanosis. Laboratory Data: White count is 7.7, hemoglobin 14.7, and platelet count 195,000. BUN 19 and creatinine of 1.3. Urinalysis showed +1 leukocyte esterase and moderate amount of squamous epithelial cells. IMAGING: Chest x-ray showed no acute process. ASSESSMENT AND RECOMMENDATIONS: 1. Left eye redness. The patient was evaluated and seen by it technical support specialist and retina specialist. 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 No need for antibiotics treatment at this point. Further management as per retina specialist and it technical support specialist. The patient may need surgical procedure in the future. 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 2. Atrial fibrillation with rapid ventricular rate, now controlled. Continue cardiac medications. Cardiology is following. May need anticoagulation to prevent further ischemia and central nervous system damage. Thank you for the consult. Val Kaur M.D. DR: NATALIYA JOB#: [id number] CC:
[2017-08-10] VITALS (7 sets, daily range): BP systolic 101–148; BP diastolic 61–84
[2017-08-10] MEDS: Brimonidine 0.2% Opth Sol LEFT EYE SCH ×3 (05:41→22:00)
--- NOTE | 2017-08-10 08:26 | Cardiology Progress Note ---
Assessment/Plan Assessment/Plan The patient is seen and examined, full consult note will be dictated. Objective Last 24 Hour Vital Signs Date Time Temp Pulse Resp B/P (MAP) Pulse Ox O2 Delivery O2 Flow Rate FiO2 08/10/17 04:33 97.0 82 20 136/72 96 Room Air 08/10/17 04:00 117 08/10/17 00:06 98.0 80 20 142/79 98 Room Air 08/10/17 00:00 115 08/09/17 21:00 131/76 08/09/17 21:00 80 131/76 08/09/17 20:31 98.0 80 20 131/76 88 Room Air 08/09/17 20:00 103 08/09/17 18:00 105 08/09/17 15:24 98.4 113 18 129/79 100 Room Air 08/09/17 12:00 97 08/09/17 11:29 98.1 71 18 130/66 100 Room Air JACLYN LUNDBERG Aug 10, 2017 08:26
[2017-08-10] MEDS: Pred Forte 1% Opth Susp 1ml LEFT EYE SCH ×4 (09:00→22:35)
[2017-08-10] MEDS: Timolol 0.5% Op Soln 2.5ml LEFT EYE SCH ×2 (10:05→18:20)
[2017-08-10] MEDS: Eliquis 2.5mg tablet ORAL SCH ×2 (10:08→18:19)
[2017-08-10] MEDS: Dorzolamide 2% 10ml Btl LEFT EYE SCH ×4 (10:08→22:34)
[2017-08-10] MEDS: Aspirin EC 81mg tab ORAL SCH (10:08)
[2017-08-10] MEDS: Metoprolol Tartrate 50mg tab ORAL SCH ×2 (10:08→21:00)
--- NOTE | 2017-08-10 12:11 | Diagnostic Imaging Report ---
APPROVED REPORT CPT Code: 86755 Vascular Symptoms Comments: Weakness Doppler Spectral Velocity Analysis RightLeft BILATERAL: CCA - Imaging reveals no significant plaque in the right and left common external carotid arteries. The Doppler signal indicates the degree of stenosis is minimal (10% - 20%) in the internal and external carotid arteries. VERTEBRAL- The left vertebral artery was patent without evidence of stenosis or steal. The right vertebral artery was not well visualized.
--- NOTE | 2017-08-10 12:12 | Diagnostic Imaging Report ---
APPROVED REPORT CPT Code: 23440 Present Symptoms Comments: Leg pain BILATERAL: Imaging reveals a patent deep venous system bilaterally. There is no evidence of thrombus within the femoral, popliteal or tibial segments. The greater saphenous veins are also within normal limits. Doppler indicates normal spontaneous flow within these segments.
--- NOTE | 2017-08-10 12:51 | Pulmonology Progress Note ---
Assessment/Plan Problems: (1) Atrial fibrillation with RVR (2) Redness of left eye (3) COPD (chronic obstructive pulmonary disease) (4) Dementia (5) CAD (coronary artery disease) (6) Alzheimer's dementia Assessment/Plan heart rate better controlled at 70s check echo f/u ophthalmology recommendations titrate cardiac meds Subjective ROS Limited/Unobtainable: No Constitutional: Reports: no symptoms HEENT: Repors: no symptoms Respiratory: Reports: no symptoms Allergies: Coded Allergies: No Known Allergies (Unverified , 08/08/17) Objective Last 24 Hour Vital Signs Date Time Temp Pulse Resp B/P (MAP) Pulse Ox O2 Delivery O2 Flow Rate FiO2 08/10/17 10:08 74 125/61 08/10/17 08:41 97.8 74 18 125/61 100 Room Air 08/10/17 04:33 97.0 82 20 136/72 96 Room Air 08/10/17 04:00 117 08/10/17 00:06 98.0 80 20 142/79 98 Room Air 08/10/17 00:00 115 08/09/17 21:00 131/76 08/09/17 21:00 80 131/76 08/09/17 20:31 98.0 80 20 131/76 88 Room Air 08/09/17 20:00 103 08/09/17 18:00 105 08/09/17 15:24 98.4 113 18 129/79 100 Room Air Intake and Output 08/10/17 08/11/17 19:00 07:00 Intake Total 240 ml Balance 240 ml Intake Oral 240 ml General Appearance: WD/WN HEENT: normocephalic, atraumatic Respiratory/Chest: chest wall non-tender, lungs clear Breasts: no masses Cardiovascular: normal peripheral pulses Abdomen: normal bowel sounds, soft, non tender Extremities: no cyanosis Skin: no rash Neurologic/Psychiatric: joiner II-XII grossly normal, no motor/sensory deficits Lymphatic: no neck adenopathy Current Medications Medications (Trade) Dose Ordered Sig/David Route PRN Reason Start Time Stop Time Status Last Admin Dose Admin Acetaminophen (Tylenol) 650 mg Q4H PRN ORAL fever>100.5 08/08/17 15:30 09/07/17 15:29 Al Hydroxide/Mg Hydroxide (Mylanta II) 30 ml Q6H PRN ORAL dyspepsia 08/08/17 15:30 09/07/17 15:29 Apixaban (Eliquis) 2.5 mg BID ORAL 08/10/17 09:00 09/09/17 08:59 08/10/17 10:08 Aspirin (Ecotrin) 81 mg DAILY ORAL 08/10/17 09:00 09/09/17 08:59 08/10/17 10:08 Atorvastatin Calcium (Lipitor) 20 mg BEDTIME ORAL 08/09/17 21:00 09/08/17 20:59 Atropine Sulfate (Atropine Opth Daphnie) 1 drop QID LEFT EYE 08/08/17 21:00 09/07/17 20:59 08/10/17 10:06 Brimonidine Tartrate (Alphagan) 1 drop Q8HR LEFT EYE 08/09/17 06:00 09/08/17 05:59 08/10/17 05:41 Clonidine HCl (Catapres) 0.1 mg EVERY 6 HOURS PRN ORAL SBP>160 08/09/17 18:30 09/08/17 18:29 Dextrose (Dextrose 50%) STAT PRN IV Hypoglycemia 08/08/17 15:30 09/07/17 15:29 Dorzolamide HCl (Trusopt) 1 drop THREE TIMES A DAY LEFT EYE 08/09/17 09:00 09/08/17 08:59 08/10/17 10:08 Enalapril Maleate (Vasotec) 10 mg BEDTIME ORAL 08/09/17 21:00 09/08/17 20:59 Lorazepam (Ativan 2mg/ml 1ml) 0.5 mg Q4H PRN IV For Anxiety 08/08/17 15:30 08/15/17 15:29 Metoprolol Tartrate (Lopressor) 50 mg Q12HR ORAL 08/09/17 21:00 09/08/17 20:59 08/10/17 10:08 Morphine Sulfate (Morphine Sulfate) 1 mg Q4H PRN IVP For Pain 08/08/17 15:30 08/15/17 15:29 Ondansetron HCl (Zofran) 4 mg Q6H PRN IVP Nausea & Vomiting 08/08/17 15:30 09/07/17 15:29 Polyethylene Glycol (Miralax) 17 gm HSPRN PRN ORAL Constipation 08/08/17 21:00 09/07/17 20:59 Prednisolone Acetate (Pred Forte) 1 drop QID LEFT EYE 08/09/17 09:00 09/08/17 08:59 08/09/17 20:49 Timolol Maleate (Timoptic 0.5% Op Soln) 1 drop BID LEFT EYE 08/09/17 09:00 09/08/17 08:59 08/10/17 10:05 Zolpidem Tartrate (Ambien) 5 mg HSPRN PRN ORAL Insomnia 08/08/17 21:00 08/15/17 20:59 TRACI SHARP Aug 10, 2017 12:51
--- NOTE | 2017-08-10 15:09 | General Progress Note ---
Assessment/Plan Problem List: (1) UTI (urinary tract infection) ICD Codes: N39.0 - Urinary tract infection, site not specified SNOMED: 32887123 (2) HTN (hypertension) ICD Codes: I10 - Essential (primary) hypertension SNOMED: 30675729 (3) Redness of left eye ICD Codes: H57.8 - Other specified disorders of eye and adnexa SNOMED: 26322177 (4) Atrial fibrillation with RVR ICD Codes: I48.91 - Unspecified atrial fibrillation SNOMED: 929231890593777 (5) CAD (coronary artery disease) ICD Codes: I25.10 - Atherosclerotic heart disease of [place] coronary artery without angina pectoris SNOMED: 94841291 (6) Alzheimer's dementia ICD Codes: G30.9 - Alzheimer's disease, unspecified SNOMED: 41522943 (7) COPD (chronic obstructive pulmonary disease) ICD Codes: J44.9 - Chronic obstructive pulmonary disease, unspecified SNOMED: 78902350 (8) Dementia ICD Codes: F03.90 - Unspecified dementia without behavioral disturbance SNOMED: 97512018 Status: stable, progressing, tolerating diet Assessment/Plan ot pt diet abx ophthal f/u abx cbc bmp am Subjective Constitutional: Reports: weakness Allergies: Coded Allergies: No Known Allergies (Unverified , 08/08/17) All Systems: reviewed and negative except above Subjective sl anxious in bed Objective Last 24 Hour Vital Signs Date Time Temp Pulse Resp B/P (MAP) Pulse Ox O2 Delivery O2 Flow Rate FiO2 08/10/17 12:00 97.7 86 20 141/84 98 Room Air 08/10/17 10:08 74 125/61 08/10/17 08:41 97.8 74 18 125/61 100 Room Air 08/10/17 04:33 97.0 82 20 136/72 96 Room Air 08/10/17 04:00 117 08/10/17 00:06 98.0 80 20 142/79 98 Room Air 08/10/17 00:00 115 08/09/17 21:00 131/76 08/09/17 21:00 80 131/76 08/09/17 20:31 98.0 80 20 131/76 88 Room Air 08/09/17 20:00 103 08/09/17 18:00 105 9/28/17 15:24 98.4 113 18 129/79 100 Room Air Intake and Output 08/10/17 08/11/17 19:00 07:00 Intake Total 480 ml Balance 480 ml Intake Oral 480 ml Height (Feet): 5 Height (Inches): 1.00 Weight (Pounds): 120 General Appearance: lethargic EENT: normal ENT inspection Neck: normal alignment Cardiovascular: normal peripheral pulses, normal rate, regular rhythm Respiratory/Chest: chest wall non-tender, lungs clear, normal breath sounds Extremities: normal inspection Edema: no edema noted Arm (L), no edema noted Arm (R), no edema noted Leg (L), no edema noted Leg (R), no edema noted Pedal (L), no edema noted Pedal (R), no edema noted Generalized JENNIFER WELCH Aug 10, 2017 15:09
--- NOTE | 2017-08-10 18:21 | Infectious Diseases Prog Note ---
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 (2) Atrial fibrillation Assessment & Plan: continue rate control meds, cards is following Subjective ROS Limited/Unobtainable: Yes Allergies: Coded Allergies: No Known Allergies (Unverified , 08/08/17) Objective Vital Signs Last 24 Hour Vital Signs Date Time Temp Pulse Resp B/P (MAP) Pulse Ox O2 Delivery O2 Flow Rate FiO2 08/10/17 16:00 97.2 74 20 148/81 98 Room Air 08/10/17 12:00 97.7 86 20 141/84 98 Room Air 08/10/17 12:00 100 08/10/17 10:08 74 125/61 08/10/17 08:41 97.8 74 18 125/61 100 Room Air 08/10/17 08:00 119 08/10/17 04:33 97.0 82 20 136/72 96 Room Air 08/10/17 04:00 117 08/10/17 00:06 98.0 80 20 142/79 98 Room Air 08/10/17 00:00 115 08/09/17 21:00 131/76 08/09/17 21:00 80 131/76 08/09/17 20:31 98.0 80 20 131/76 88 Room Air 08/09/17 20:00 103 Height (Feet): 5 Height (Inches): 1.00 Weight (Pounds): 120 General Appearance: WD/WN, no acute distress HEENT: normocephalic, atraumatic, anicteric, mucous membranes moist, other - left eye redness Respiratory/Chest: chest wall non-tender, lungs clear, normal breath sounds, no respiratory distress, no accessory muscle use Cardiovascular: normal peripheral pulses, normal rate, regular rhythm, no gallop/murmur, no JVD Abdomen: normal bowel sounds, soft, non tender, no organomegaly, non distended , no scars Extremities: no cyanosis Skin: no rash, no lesions Current Medications Medications (Trade) Dose Ordered Sig/David Route PRN Reason Start Time Stop Time Status Last Admin Dose Admin Acetaminophen (Tylenol) 650 mg Q4H PRN ORAL fever>100.5 08/08/17 15:30 09/07/17 15:29 Al Hydroxide/Mg Hydroxide (Mylanta II) 30 ml Q6H PRN ORAL dyspepsia 08/08/17 15:30 09/07/17 15:29 Apixaban (Eliquis) 2.5 mg BID ORAL 08/10/17 09:00 09/09/17 08:59 08/10/17 10:08 Aspirin (Ecotrin) 81 mg DAILY ORAL 08/10/17 09:00 09/09/17 08:59 08/10/17 10:08 Atorvastatin Calcium (Lipitor) 20 mg BEDTIME ORAL 08/09/17 21:00 09/08/17 20:59 Atropine Sulfate (Atropine Opth Daphnie) 1 drop QID LEFT EYE 08/08/17 21:00 09/07/17 20:59 08/10/17 10:06 Brimonidine Tartrate (Alphagan) 1 drop Q8HR LEFT EYE 08/09/17 06:00 09/08/17 05:59 08/10/17 05:41 Clonidine HCl (Catapres) 0.1 mg EVERY 6 HOURS PRN ORAL SBP>160 08/09/17 18:30 09/08/17 18:29 Dextrose (Dextrose 50%) STAT PRN IV Hypoglycemia 08/08/17 15:30 09/07/17 15:29 Donepezil HCl (Aricept) 5 mg QHS ORAL 08/10/17 21:00 09/09/17 20:59 Dorzolamide HCl (Trusopt) 1 drop THREE TIMES A DAY LEFT EYE 08/09/17 09:00 09/08/17 08:59 08/10/17 10:08 Enalapril Maleate (Vasotec) 10 mg BEDTIME ORAL 08/09/17 21:00 09/08/17 20:59 Lorazepam (Ativan 2mg/ml 1ml) 0.5 mg Q4H PRN IV For Anxiety 08/08/17 15:30 08/15/17 15:29 Metoprolol Tartrate (Lopressor) 50 mg Q12HR ORAL 08/09/17 21:00 09/08/17 20:59 08/10/17 10:08 Morphine Sulfate (Morphine Sulfate) 1 mg Q4H PRN IVP For Pain 08/08/17 15:30 08/15/17 15:29 Ondansetron HCl (Zofran) 4 mg Q6H PRN IVP Nausea & Vomiting 08/08/17 15:30 09/07/17 15:29 Polyethylene Glycol (Miralax) 17 gm HSPRN PRN ORAL Constipation 08/08/17 21:00 09/07/17 20:59 Prednisolone Acetate (Pred Forte) 1 drop QID LEFT EYE 08/09/17 09:00 09/08/17 08:59 08/09/17 20:49 Timolol Maleate (Timoptic 0.5% Op Soln) 1 drop BID LEFT EYE 08/09/17 09:00 09/08/17 08:59 08/10/17 10:05 Zolpidem Tartrate (Ambien) 5 mg HSPRN PRN ORAL Insomnia 08/08/17 21:00 08/15/17 20:59 Val Kaur M.D. Aug 10, 2017 18:21
[2017-08-10] MEDS: Donepezil 5mg Tab ORAL SCH (22:31)
[2017-08-10] MEDS: Atorvastatin 20mg tab ORAL SCH (22:31)
[2017-08-11] VITALS (7 sets, daily range): BP systolic 106–134; BP diastolic 61–100
--- NOTE | 2017-08-11 04:30 | Consultation ---
DATE OF CONSULTATION: 08/10/2017 CARDIOLOGY CONSULTATION REFERRING PHYSICIAN: Felipe Bacon D.O. REASON FOR CONSULTATION: Management of tachycardia. History of Present Illness: The patient is a very unfortunate 86-year-old female who is a resident of a retirement under the care of Dr. Felipe Bacon, who presents to the hospital with left eye swelling and pain. The patient is demented and is not capable of providing a detailed history. Therefore, this report is prepared by using the old records. In the emergency department, the patient was found to have atrial fibrillation with rapid ventricular response. She was transferred to telemetry for further evaluation and management. Cardiology consultation was made at request of Dr. Bacon for evaluation and management of the above condition. Past Medical History: History of chronic kidney disease, history of gastroesophageal reflux disease, history of psychiatric problem, history of COPD, and history of hypertension. PAST SURGICAL HISTORY: None. Medications: The list of medications in retirement, acetaminophen 325 mg q.4 h. as needed for pain and temperature, rivaroxaban 20 mg p.o. at bedtime, Renagel 800 mg three times daily, nifedipine XL 30 mg p.o. twice daily, pantoprazole 40 mg p.o. daily, multivitamin one tablet p.o. daily, magnesium hydroxide 30 mL p.o. daily as needed for constipation, metoprolol 25 mg q.12 h., and enalapril 10 mg p.o. at bedtime. ALLERGIES: No known drug allergies. Social History: Resident of a retirement. There is no history of tobacco, alcohol, or illicit drug use. Family History: No premature coronary artery disease in the first-degree relatives. PHYSICAL EXAMINATION: General: The patient is a very unfortunate 86-year-old lady, who is responding to simple questions, is awake, in no apparent respiratory distress. Vital Signs: Blood pressure is 130/66, heart rate was 104, respirations of 16, O2 saturation 98% on room air, and temperature 97.3 degrees Fahrenheit. HEENT: Atraumatic and normocephalic. Anicteric. Pupils are equal, round, and reactive to light and accommodation. There is corneal erythema over the left eye. Neck: JVP less than 5 cm. No carotid bruit. Carotid upstrokes 2+ bilaterally. LUNGS: Clear to auscultation bilaterally. Cardiovascular: Normal S1 and S2. Irregularly irregular rhythm. Tachycardic. No murmurs, gallops, or rubs. PMI is is at fourth intercostal space at the midclavicular line. Abdomen: Soft, nontender, and nondistended. No hepatosplenomegaly. Positive bowel sounds. EXTREMITIES: No evidence of edema, clubbing, or cyanosis. Laboratory And Diagnostic Data: WBC was 7.8, hemoglobin 15.1, hematocrit of 49.5, and platelet count is 202,000. Troponin I is less than 0.3. BUN was 19 and creatinine 1.3. A 12-lead electrocardiogram shows atrial fibrillation with rapid ventricular response, no ST and T-wave abnormalities, heart rate of 123. Chest x-ray shows no acute cardiopulmonary disease. Assessment And Plan: The patient is a very unfortunate 86-year-old female, seen in Cardiology consultation at the request of Dr. Bacon. 1. Atrial fibrillation with rapid ventricular response. We would like to increase the patient's metoprolol to control the ventricular response. I would like to switch her from rivaroxaban to Eliquis 2.5 mg twice daily. Atrial fibrillation appears to be permanent. A 2D echocardiography will be done to assess left ventricular systolic function and also left atrial size. 2. History of dementia. 3. History of hypertension. Continue to monitor the patient's blood pressure. I would like to thank, Dr. Bacon, for allowing me to participate in the care of this patient. Simeon Johnson M.D. DR: JOANNE JOB#: [id number] CC:
[2017-08-11] MEDS: Brimonidine 0.2% Opth Sol LEFT EYE SCH ×3 (06:00→21:05)
[2017-08-11 07:43] LABS: BASOPHILS % (AUTO) 1.1 % (0.0-2.0); EOSINOPHILS % (AUTO) 1.3 % (0.0-3.0); LYMPHOCYTES % (AUTO) 37.6 % (20.0-45.0); MEAN CORPUSCULAR HEMOGLOBIN 25.7 PG (27.0-31.0); MEAN CORPUSCULAR HGB CONC 30.6 G/DL (32.0-36.0); MEAN CORPUSCULAR VOLUME 84 FL (80-99); MEAN PLATELET VOLUME 9.3 FL (6.5-10.1); MONOCYTES % (AUTO) 5.2 % (1.0-10.0); NEUTROPHILS % (AUTO) 54.8 % (45.0-75.0); PLATELET COUNT 209 K/UL (150-450); RED BLOOD COUNT 5.63 M/UL (4.20-5.40); RED CELL DISTRIBUTION WIDTH 15.4 % (11.6-14.8); WHITE BLOOD COUNT 6.7 K/UL (4.8-10.8)
[2017-08-11 07:56] LABS: ANION GAP 15 (5-15); CALCIUM 10.1 mg/dL (8.6-10.2); CARBON DIOXIDE 21 mEQ/L (20-30); CHLORIDE 103 mEQ/L (98-107); CREATININE 1.1 mg/dL (0.5-0.9); HEMOLYSIS 33; POTASSIUM 5.3 mEQ/L (3.4-4.9); SODIUM 139 mEQ/L (135-145)
[2017-08-11] MEDS: Metoprolol Tartrate 50mg tab ORAL SCH ×2 (09:00→20:53)
--- NOTE | 2017-08-11 10:16 | General Progress Note ---
Assessment/Plan Problem List: (1) UTI (urinary tract infection) ICD Codes: N39.0 - Urinary tract infection, site not specified SNOMED: 93900622 (2) HTN (hypertension) ICD Codes: I10 - Essential (primary) hypertension SNOMED: 43945463 (3) Redness of left eye ICD Codes: H57.8 - Other specified disorders of eye and adnexa SNOMED: 79284461 (4) Atrial fibrillation with RVR ICD Codes: I48.91 - Unspecified atrial fibrillation SNOMED: 472608694333778 (5) CAD (coronary artery disease) ICD Codes: I25.10 - Atherosclerotic heart disease of [place] coronary artery without angina pectoris SNOMED: 41000677 (6) Alzheimer's dementia ICD Codes: G30.9 - Alzheimer's disease, unspecified SNOMED: 00123104 (7) COPD (chronic obstructive pulmonary disease) ICD Codes: J44.9 - Chronic obstructive pulmonary disease, unspecified SNOMED: 30586835 (8) Dementia ICD Codes: F03.90 - Unspecified dementia without behavioral disturbance SNOMED: 31837121 Status: stable, progressing, tolerating diet Assessment/Plan ot pt diet abx ophthal f/u abx cbc bmp am dc plan snf vs ltach Subjective Constitutional: Reports: weakness Allergies: Coded Allergies: No Known Allergies (Unverified , 08/08/17) All Systems: reviewed and negative except above Subjective sl anxious in bed Objective Last 24 Hour Vital Signs Date Time Temp Pulse Resp B/P (MAP) Pulse Ox O2 Delivery O2 Flow Rate FiO2 08/11/17 08:00 97.2 85 18 106/63 98 Room Air 08/11/17 04:10 97.9 87 20 127/100 100 Room Air 08/11/17 04:00 77 08/11/17 01:04 97.7 82 20 117/76 97 Room Air 08/11/17 00:00 71 08/11/17 00:00 97.3 71 20 109/61 95 Room Air 08/10/17 21:00 101/65 08/10/17 21:00 78 101/65 08/10/17 20:00 73 08/10/17 20:00 97.7 78 22 101/65 100 Room Air 78 08/10/17 16:00 97.2 74 20 148/81 98 Room Air 08/10/17 16:00 68 08/10/17 12:00 97.7 86 20 141/84 98 Room Air 08/10/17 12:00 100 Intake and Output 08/11/17 08/12/17 19:00 07:00 Intake Total 240 ml Balance 240 ml Intake Oral 240 ml Laboratory Tests 08/11/17 05:44: White Blood Count 6.7, Red Blood Count 5.63H, Hemoglobin 14.5, Hematocrit 47.2H , Mean Corpuscular Volume 84, Mean Corpuscular Hemoglobin 25.7L, Mean Corpuscular Hemoglobin Concent 30.6L, Red Cell Distribution Width 15.4H, Platelet Count 209, Mean Platelet Volume 9.3, Neutrophils (%) (Auto) 54.8, Lymphocytes (%) (Auto) 37.6, Monocytes (%) (Auto) 5.2, Eosinophils (%) (Auto) 1.3, Basophils (%) (Auto) 1.1, Sodium Level 139, Potassium Level 5.3H, Chloride Level 103, Carbon Dioxide Level 21, Anion Gap 15, Blood Urea Nitrogen 21, Creatinine 1.1H, Estimat Glomerular Filtration Rate , Glucose Level 85, Calcium Level 10.1 08/11/17 06:00: Potassium Level 5.2H Height (Feet): 5 Height (Inches): 1.00 Weight (Pounds): 120 General Appearance: lethargic, confused EENT: normal ENT inspection Neck: normal alignment Cardiovascular: normal peripheral pulses, normal rate, regular rhythm Respiratory/Chest: chest wall non-tender, lungs clear, normal breath sounds Abdomen: normal bowel sounds, non tender, soft Extremities: normal inspection Edema: no edema noted Arm (L), no edema noted Arm (R), no edema noted Leg (L), no edema noted Leg (R), no edema noted Pedal (L), no edema noted Pedal (R), no edema noted Generalized Neurologic: motor weakness Skin: normal pigmentation, warm/dry JENNIFER WELCH Aug 11, 2017 10:16
[2017-08-11] MEDS ORDERED: Sodium Polystyrene Sulfonate 15gm Powder ORAL ONE (10:45)
[2017-08-11] MEDS: Timolol 0.5% Op Soln 2.5ml LEFT EYE SCH ×2 (10:56→17:38)
[2017-08-11] MEDS: Pred Forte 1% Opth Susp 1ml LEFT EYE SCH ×4 (10:56→21:05)
[2017-08-11] MEDS: Dorzolamide 2% 10ml Btl LEFT EYE SCH ×3 (10:57→17:38)
[2017-08-11] MEDS: Aspirin EC 81mg tab ORAL SCH (10:57)
[2017-08-11] MEDS: Eliquis 2.5mg tablet ORAL SCH ×2 (10:58→17:39)
--- NOTE | 2017-08-11 11:48 | General Progress Note ---
Progress Note Progress Note [id number] full note dictated ASCENCION RAMIREZ Aug 11, 2017 11:48
--- NOTE | 2017-08-11 15:14 | Pulmonology Progress Note ---
Assessment/Plan Problems: (1) Atrial fibrillation with RVR (2) Redness of left eye (3) COPD (chronic obstructive pulmonary disease) (4) Dementia (5) CAD (coronary artery disease) (6) Alzheimer's dementia Assessment/Plan heart rate better controlled at 70s check echo f/u ophthalmology recommendations titrate cardiac meds might go to med/surg Subjective ROS Limited/Unobtainable: No Constitutional: Reports: no symptoms HEENT: Repors: no symptoms Respiratory: Reports: no symptoms Allergies: Coded Allergies: No Known Allergies (Unverified , 08/08/17) Objective Last 24 Hour Vital Signs Date Time Temp Pulse Resp B/P (MAP) Pulse Ox O2 Delivery O2 Flow Rate FiO2 08/11/17 11:40 96.4 87 18 124/90 100 Room Air 08/11/17 09:00 85 106/63 08/11/17 08:00 118 08/11/17 08:00 97.2 85 18 106/63 98 Room Air 08/11/17 04:10 97.9 87 20 127/100 100 Room Air 08/11/17 04:00 77 08/11/17 01:04 97.7 82 20 117/76 97 Room Air 08/11/17 00:00 71 08/11/17 00:00 97.3 71 20 109/61 95 Room Air 08/10/17 21:00 101/65 08/10/17 21:00 78 101/65 08/10/17 20:00 73 08/10/17 20:00 97.7 78 22 101/65 100 Room Air 78 08/10/17 16:00 97.2 74 20 148/81 98 Room Air 08/10/17 16:00 68 Intake and Output 08/11/17 08/12/17 19:00 07:00 Intake Total 390 ml Output Total 150 ml Balance 240 ml Intake Oral 390 ml Output Urine Total 150 ml General Appearance: WD/WN HEENT: normocephalic Respiratory/Chest: chest wall non-tender, lungs clear Breasts: no masses Cardiovascular: normal peripheral pulses, normal rate Abdomen: normal bowel sounds Genitourinary: normal external genitalia Extremities: no cyanosis Skin: no ulcers 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/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 II-XII grossly normal, no motor/sensory deficits, normal mood/affect Lymphatic: no neck adenopathy Laboratory Tests 08/11/17 05:44: White Blood Count 6.7, Red Blood Count 5.63H, Hemoglobin 14.5, Hematocrit 47.2H , Mean Corpuscular Volume 84, Mean Corpuscular Hemoglobin 25.7L, Mean Corpuscular Hemoglobin Concent 30.6L, Red Cell Distribution Width 15.4H, Platelet Count 209, Mean Platelet Volume 9.3, Neutrophils (%) (Auto) 54.8, Lymphocytes (%) (Auto) 37.6, Monocytes (%) (Auto) 5.2, Eosinophils (%) (Auto) 1.3, Basophils (%) (Auto) 1.1, Sodium Level 139, Potassium Level 5.3H, Chloride Level 103, Carbon Dioxide Level 21, Anion Gap 15, Blood Urea Nitrogen 21, Creatinine 1.1H, Estimat Glomerular Filtration Rate , Glucose Level 85, Calcium Level 10.1 08/11/17 06:00: Potassium Level 5.2H Current Medications Medications (Trade) Dose Ordered Sig/David Route PRN Reason Start Time Stop Time Status Last Admin Dose Admin Acetaminophen (Tylenol) 650 mg Q4H PRN ORAL fever>100.5 08/08/17 15:30 09/07/17 15:29 Al Hydroxide/Mg Hydroxide (Mylanta II) 30 ml Q6H PRN ORAL dyspepsia 08/08/17 15:30 09/07/17 15:29 Apixaban (Eliquis) 2.5 mg BID ORAL 08/10/17 09:00 09/09/17 08:59 08/11/17 10:58 Aspirin (Ecotrin) 81 mg DAILY ORAL 08/10/17 09:00 09/09/17 08:59 08/11/17 10:57 Atorvastatin Calcium (Lipitor) 20 mg BEDTIME ORAL 08/09/17 21:00 09/08/17 20:59 08/10/17 22:31 Atropine Sulfate (Atropine Opth Daphnie) 1 drop QID LEFT EYE 08/08/17 21:00 09/07/17 20:59 08/11/17 14:17 Brimonidine Tartrate (Alphagan) 1 drop Q8HR LEFT EYE 08/09/17 06:00 09/08/17 05:59 08/11/17 14:16 Clonidine HCl (Catapres) 0.1 mg EVERY 6 HOURS PRN ORAL SBP>160 08/09/17 18:30 09/08/17 18:29 Dextrose (Dextrose 50%) STAT PRN IV Hypoglycemia 08/08/17 15:30 09/07/17 15:29 Donepezil HCl (Aricept) 5 mg QHS ORAL 08/10/17 21:00 09/09/17 20:59 08/10/17 22:31 Dorzolamide HCl (Trusopt) 1 drop THREE TIMES A DAY LEFT EYE 08/09/17 09:00 09/08/17 08:59 08/11/17 14:18 Lorazepam (Ativan 2mg/ml 1ml) 0.5 mg Q4H PRN IV For Anxiety 08/08/17 15:30 08/15/17 15:29 08/11/17 04:55 Metoprolol Tartrate (Lopressor) 50 mg Q12HR ORAL 08/09/17 21:00 09/08/17 20:59 08/10/17 10:08 Morphine Sulfate (Morphine Sulfate) 1 mg Q4H PRN IVP For Pain 08/08/17 15:30 08/15/17 15:29 Ondansetron HCl (Zofran) 4 mg Q6H PRN IVP Nausea & Vomiting 08/08/17 15:30 09/07/17 15:29 Polyethylene Glycol (Miralax) 17 gm HSPRN PRN ORAL Constipation 08/08/17 21:00 09/07/17 20:59 Prednisolone Acetate (Pred Forte) 1 drop QID LEFT EYE 08/09/17 09:00 09/08/17 08:59 08/11/17 14:17 Risperidone (RisperDAL) 0.5 mg Q12HR ORAL 08/11/17 09:00 09/10/17 08:59 08/11/17 10:59 Timolol Maleate (Timoptic 0.5% Op Soln) 1 drop BID LEFT EYE 08/09/17 09:00 09/08/17 08:59 08/11/17 10:56 Zolpidem Tartrate (Ambien) 5 mg HSPRN PRN ORAL Insomnia 08/08/17 21:00 08/15/17 20:59 TRACI SHARP Aug 11, 2017 15:14
--- NOTE | 2017-08-11 16:24 | Infectious Diseases Prog Note ---
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 (2) Atrial fibrillation Assessment & Plan: continue rate control meds, cards is following Subjective ROS Limited/Unobtainable: Yes Allergies: Coded Allergies: No Known Allergies (Unverified , 08/08/17) Objective Vital Signs Last 24 Hour Vital Signs Date Time Temp Pulse Resp B/P (MAP) Pulse Ox O2 Delivery O2 Flow Rate FiO2 08/11/17 15:17 96.7 82 18 134/75 100 Room Air 08/11/17 11:40 96.4 87 18 124/90 100 Room Air 08/11/17 09:00 85 106/63 08/11/17 08:00 118 08/11/17 08:00 97.2 85 18 106/63 98 Room Air 08/11/17 04:10 97.9 87 20 127/100 100 Room Air 08/11/17 04:00 77 08/11/17 01:04 97.7 82 20 117/76 97 Room Air 08/11/17 00:00 71 08/11/17 00:00 97.3 71 20 109/61 95 Room Air 08/10/17 21:00 101/65 08/10/17 21:00 78 101/65 08/10/17 20:00 73 08/10/17 20:00 97.7 78 22 101/65 100 Room Air 78 Height (Feet): 5 Height (Inches): 1.00 Weight (Pounds): 120 General Appearance: WD/WN, no acute distress HEENT: normocephalic, atraumatic, anicteric Respiratory/Chest: chest wall non-tender, lungs clear, normal breath sounds, no respiratory distress Cardiovascular: normal peripheral pulses, normal rate, regular rhythm, no gallop/murmur Abdomen: normal bowel sounds, soft, non tender, no organomegaly, non distended , no mass Extremities: no cyanosis, no clubbing Skin: no rash, no lesions Laboratory Tests Test 08/11/17 05:44 08/11/17 06:00 White Blood Count 6.7 K/UL (4.8-10.8) Red Blood Count 5.63 M/UL (4.20-5.40) H Hemoglobin 14.5 G/DL (12.0-16.0) Hematocrit 47.2 % (37.0-47.0) H Mean Corpuscular Volume 84 FL (80-99) Mean Corpuscular Hemoglobin 25.7 PG (27.0-31.0) L Mean Corpuscular Hemoglobin Concent 30.6 G/DL (32.0-36.0) L Red Cell Distribution Width 15.4 % (11.6-14.8) H Platelet Count 209 K/UL (150-450) Mean Platelet Volume 9.3 FL (6.5-10.1) Neutrophils (%) (Auto) 54.8 % (45.0-75.0) Lymphocytes (%) (Auto) 37.6 % (20.0-45.0) Monocytes (%) (Auto) 5.2 % (1.0-10.0) Eosinophils (%) (Auto) 1.3 % (0.0-3.0) Basophils (%) (Auto) 1.1 % (0.0-2.0) Sodium Level 139 mEQ/L (135-145) Potassium Level 5.3 mEQ/L (3.4-4.9) H 5.2 mEQ/L (3.4-4.9) H Chloride Level 103 mEQ/L (98-107) Carbon Dioxide Level 21 mEQ/L (20-30) Anion Gap 15 (5-15) Blood Urea Nitrogen 21 mg/dL (7-23) Creatinine 1.1 mg/dL (0.5-0.9) H Estimat Glomerular Filtration Rate mL/min (>60) Glucose Level 85 mg/dL (74-106) Calcium Level 10.1 mg/dL (8.6-10.2) Current Medications Medications (Trade) Dose Ordered Sig/David Route PRN Reason Start Time Stop Time Status Last Admin Dose Admin Acetaminophen (Tylenol) 650 mg Q4H PRN ORAL fever>100.5 08/08/17 15:30 09/07/17 15:29 Al Hydroxide/Mg Hydroxide (Mylanta II) 30 ml Q6H PRN ORAL dyspepsia 08/08/17 15:30 09/07/17 15:29 Apixaban (Eliquis) 2.5 mg BID ORAL 08/10/17 09:00 09/09/17 08:59 08/11/17 10:58 Aspirin (Ecotrin) 81 mg DAILY ORAL 08/10/17 09:00 09/09/17 08:59 08/11/17 10:57 Atorvastatin Calcium (Lipitor) 20 mg BEDTIME ORAL 08/09/17 21:00 09/08/17 20:59 08/10/17 22:31 Atropine Sulfate (Atropine Opth Daphnie) 1 drop QID LEFT EYE 08/08/17 21:00 09/07/17 20:59 08/11/17 14:17 Brimonidine Tartrate (Alphagan) 1 drop Q8HR LEFT EYE 08/09/17 06:00 09/08/17 05:59 08/11/17 14:16 Clonidine HCl (Catapres) 0.1 mg EVERY 6 HOURS PRN ORAL SBP>160 08/09/17 18:30 09/08/17 18:29 Dextrose (Dextrose 50%) STAT PRN IV Hypoglycemia 08/08/17 15:30 09/07/17 15:29 Donepezil HCl (Aricept) 5 mg QHS ORAL 08/10/17 21:00 09/09/17 20:59 08/10/17 22:31 Dorzolamide HCl (Trusopt) 1 drop THREE TIMES A DAY LEFT EYE 08/09/17 09:00 09/08/17 08:59 08/11/17 14:18 Lorazepam (Ativan 2mg/ml 1ml) 0.5 mg Q4H PRN IV For Anxiety 08/08/17 15:30 08/15/17 15:29 08/11/17 04:55 Metoprolol Tartrate (Lopressor) 50 mg Q12HR ORAL 08/09/17 21:00 09/08/17 20:59 08/10/17 10:08 Morphine Sulfate (Morphine Sulfate) 1 mg Q4H PRN IVP For Pain 08/08/17 15:30 08/15/17 15:29 Ondansetron HCl (Zofran) 4 mg Q6H PRN IVP Nausea & Vomiting 08/08/17 15:30 09/07/17 15:29 Polyethylene Glycol (Miralax) 17 gm HSPRN PRN ORAL Constipation 08/08/17 21:00 09/07/17 20:59 Prednisolone Acetate (Pred Forte) 1 drop QID LEFT EYE 08/09/17 09:00 09/08/17 08:59 08/11/17 14:17 Risperidone (RisperDAL) 0.5 mg Q12HR ORAL 08/11/17 09:00 09/10/17 08:59 08/11/17 10:59 Timolol Maleate (Timoptic 0.5% Op Soln) 1 drop BID LEFT EYE 08/09/17 09:00 09/08/17 08:59 08/11/17 10:56 Zolpidem Tartrate (Ambien) 5 mg HSPRN PRN ORAL Insomnia 08/08/17 21:00 08/15/17 20:59 Val Kaur M.D. Aug 11, 2017 16:24
[2017-08-11] MEDS: Atorvastatin 20mg tab ORAL SCH (20:53)
[2017-08-11] MEDS: Donepezil 5mg Tab ORAL SCH (20:53)
--- NOTE | 2017-08-11 21:35 | Cardiology Progress Note ---
Assessment/Plan Assessment/Plan 1. Atrial fibrillation with controlled ventricular response, continue metoprolol and Eliquis. 2. Severe mitral regurgitation, may need to consider a small dose of diuretics. 3. Normal LV systolic function with LVEF at 50%. Objective Last 24 Hour Vital Signs Date Time Temp Pulse Resp B/P (MAP) Pulse Ox O2 Delivery O2 Flow Rate FiO2 08/11/17 20:53 92 131/76 08/11/17 20:03 97.2 92 20 131/76 100 Room Air 08/11/17 16:00 95 08/11/17 15:17 96.7 82 18 134/75 100 Room Air 08/11/17 12:00 82 08/11/17 11:40 96.4 87 18 124/90 100 Room Air 08/11/17 09:00 85 106/63 08/11/17 08:00 118 08/11/17 08:00 97.2 85 18 106/63 98 Room Air 08/11/17 04:10 97.9 87 20 127/100 100 Room Air 08/11/17 04:00 77 08/11/17 01:04 97.7 82 20 117/76 97 Room Air 08/11/17 00:00 71 08/11/17 00:00 97.3 71 20 109/61 95 Room Air Intake and Output 08/11/17 08/12/17 19:00 07:00 Intake Total 710 ml Output Total 400 ml 100 ml Balance 310 ml -100 ml Intake Oral 710 ml Output Urine Total 400 ml 100 ml # Voids 1 # Bowel Movements 1 2D Echo: LVEF 50%, MARIS, Mod TR with RVSP 33 mmHg, Severe MR, Diastolic fxn ?? Laboratory Tests Test 08/11/17 05:44 08/11/17 06:00 White Blood Count 6.7 K/UL (4.8-10.8) Red Blood Count 5.63 M/UL (4.20-5.40) H Hemoglobin 14.5 G/DL (12.0-16.0) Hematocrit 47.2 % (37.0-47.0) H Mean Corpuscular Volume 84 FL (80-99) Mean Corpuscular Hemoglobin 25.7 PG (27.0-31.0) L Mean Corpuscular Hemoglobin Concent 30.6 G/DL (32.0-36.0) L Red Cell Distribution Width 15.4 % (11.6-14.8) H Platelet Count 209 K/UL (150-450) Mean Platelet Volume 9.3 FL (6.5-10.1) Neutrophils (%) (Auto) 54.8 % (45.0-75.0) Lymphocytes (%) (Auto) 37.6 % (20.0-45.0) Monocytes (%) (Auto) 5.2 % (1.0-10.0) Eosinophils (%) (Auto) 1.3 % (0.0-3.0) Basophils (%) (Auto) 1.1 % (0.0-2.0) Sodium Level 139 mEQ/L (135-145) Potassium Level 5.3 mEQ/L (3.4-4.9) H 5.2 mEQ/L (3.4-4.9) H Chloride Level 103 mEQ/L (98-107) Carbon Dioxide Level 21 mEQ/L (20-30) Anion Gap 15 (5-15) Blood Urea Nitrogen 21 mg/dL (7-23) Creatinine 1.1 mg/dL (0.5-0.9) H Estimat Glomerular Filtration Rate mL/min (>60) Glucose Level 85 mg/dL (74-106) Calcium Level 10.1 mg/dL (8.6-10.2) Objective HEENT: Atraumatic and normocephalic. Anicteric. Pupils are equal, round, and reactive to light and accommodation. There is corneal erythema over the left eye. Neck: JVP less than 5 cm. No carotid bruit. Carotid upstrokes 2+ bilaterally. LUNGS: Clear to auscultation bilaterally. Cardiovascular: Normal S1 and S2. Irregularly irregular rhythm. No murmurs, gallops, or rubs. PMI is is at fourth intercostal space at the midclavicular line. Abdomen: Soft, nontender, and nondistended. No hepatosplenomegaly. Positive bowel sounds. EXTREMITIES: No evidence of edema, clubbing, or cyanosis. JACLYN LUNDBERG Aug 11, 2017 21:35
[2017-08-12] VITALS (7 sets, daily range): BP systolic 115–147; BP diastolic 17–84
[2017-08-12] MEDS: Brimonidine 0.2% Opth Sol LEFT EYE SCH ×3 (06:00→22:01)
--- NOTE | 2017-08-12 09:56 | General Progress Note ---
Assessment/Plan Problem List: (1) UTI (urinary tract infection) ICD Codes: N39.0 - Urinary tract infection, site not specified SNOMED: 58839513 (2) HTN (hypertension) ICD Codes: I10 - Essential (primary) hypertension SNOMED: 80005484 (3) Redness of left eye ICD Codes: H57.8 - Other specified disorders of eye and adnexa SNOMED: 11728391 (4) Atrial fibrillation with RVR ICD Codes: I48.91 - Unspecified atrial fibrillation SNOMED: 327165883235779 (5) CAD (coronary artery disease) ICD Codes: I25.10 - Atherosclerotic heart disease of [place] coronary artery without angina pectoris SNOMED: 57172611 (6) Alzheimer's dementia ICD Codes: G30.9 - Alzheimer's disease, unspecified SNOMED: 09120055 (7) COPD (chronic obstructive pulmonary disease) ICD Codes: J44.9 - Chronic obstructive pulmonary disease, unspecified SNOMED: 14239310 (8) Dementia ICD Codes: F03.90 - Unspecified dementia without behavioral disturbance SNOMED: 00853285 Status: stable, progressing, tolerating diet Assessment/Plan ot pt diet abx ophthal f/u abx cbc bmp am dc plan snf vs ltach Subjective Constitutional: Reports: weakness Allergies: Coded Allergies: No Known Allergies (Unverified , 08/08/17) All Systems: reviewed and negative except above Subjective sl anxious in bed Objective Last 24 Hour Vital Signs Date Time Temp Pulse Resp B/P (MAP) Pulse Ox O2 Delivery O2 Flow Rate FiO2 08/12/17 04:03 97.8 60 20 122/60 100 Room Air 08/12/17 03:48 81 08/12/17 00:00 97.0 70 20 144/63 99 Room Air 08/11/17 23:51 99 08/11/17 20:53 92 131/76 08/11/17 20:03 97.2 92 20 131/76 100 Room Air 08/11/17 19:05 85 08/11/17 16:00 95 08/11/17 15:17 96.7 82 18 134/75 100 Room Air 08/11/17 12:00 82 08/11/17 11:40 96.4 87 18 124/90 100 Room Air Height (Feet): 5 Height (Inches): 1.00 Weight (Pounds): 120 General Appearance: lethargic, confused EENT: normal ENT inspection Neck: normal alignment Cardiovascular: normal peripheral pulses, normal rate, regular rhythm Respiratory/Chest: chest wall non-tender, lungs clear, normal breath sounds Abdomen: normal bowel sounds, non tender, soft Extremities: normal inspection Edema: no edema noted Arm (L), no edema noted Arm (R), no edema noted Leg (L), no edema noted Leg (R), no edema noted Pedal (L), no edema noted Pedal (R), no edema noted Generalized Neurologic: motor weakness Skin: normal pigmentation, warm/dry JENNIFER WELCH Aug 12, 2017 09:56
[2017-08-12] MEDS: Dorzolamide 2% 10ml Btl LEFT EYE SCH ×3 (10:02→17:56)
[2017-08-12] MEDS: Pred Forte 1% Opth Susp 1ml LEFT EYE SCH ×4 (10:03→20:34)
[2017-08-12] MEDS: Aspirin EC 81mg tab ORAL SCH (10:04)
[2017-08-12] MEDS: Timolol 0.5% Op Soln 2.5ml LEFT EYE SCH ×2 (10:04→17:56)
[2017-08-12] MEDS: Eliquis 2.5mg tablet ORAL SCH ×2 (10:05→17:48)
[2017-08-12] MEDS: Metoprolol Tartrate 50mg tab ORAL SCH ×2 (10:07→20:34)
[2017-08-12 10:56] LABS: ANION GAP 9 (5-15); CALCIUM 9.1 mg/dL (8.6-10.2); CARBON DIOXIDE 26 mEQ/L (20-30); CHLORIDE 104 mEQ/L (98-107); HEMOLYSIS 93; POTASSIUM 4.2 mEQ/L (3.4-4.9); SODIUM 139 mEQ/L (135-145)
--- NOTE | 2017-08-12 12:23 | Pulmonology Progress Note ---
Assessment/Plan Problems: (1) Atrial fibrillation with RVR (2) Redness of left eye (3) COPD (chronic obstructive pulmonary disease) (4) Dementia (5) CAD (coronary artery disease) (6) Alzheimer's dementia Assessment/Plan heart rate better controlled at 70s check echo f/u ophthalmology recommendations titrate cardiac meds might go to med/surg k better today VRE colonized Subjective Constitutional: Reports: no symptoms HEENT: Repors: no symptoms Respiratory: Reports: no symptoms Cardiovascular: Reports: no symptoms Allergies: Coded Allergies: No Known Allergies (Unverified , 08/08/17) Objective Last 24 Hour Vital Signs Date Time Temp Pulse Resp B/P (MAP) Pulse Ox O2 Delivery O2 Flow Rate FiO2 08/12/17 10:07 89 125/65 08/12/17 08:00 74 08/12/17 04:03 97.8 60 20 122/60 100 Room Air 08/12/17 03:48 81 08/12/17 00:00 97.0 70 20 144/63 99 Room Air 08/11/17 23:51 99 08/11/17 20:53 92 131/76 08/11/17 20:03 97.2 92 20 131/76 100 Room Air 08/11/17 19:05 85 08/11/17 16:00 95 08/11/17 15:17 96.7 82 18 134/75 100 Room Air General Appearance: WD/WN HEENT: normocephalic, anicteric Respiratory/Chest: chest wall non-tender, lungs clear Breasts: no masses Cardiovascular: normal peripheral pulses Abdomen: normal bowel sounds, soft, non tender Genitourinary: normal external genitalia Extremities: no cyanosis Neurologic/Psychiatric: rn building II-XII grossly normal Laboratory Tests 08/12/17 10:27: Sodium Level 139, Potassium Level 4.2, Chloride Level 104, Carbon Dioxide Level 26, Anion Gap 9, Blood Urea Nitrogen 25H, Creatinine 1.0H, Estimat Glomerular Filtration Rate , Glucose Level 105, Calcium Level 9.1 Current Medications Medications (Trade) Dose Ordered Sig/David Route PRN Reason Start Time Stop Time Status Last Admin Dose Admin Acetaminophen (Tylenol) 650 mg Q4H PRN ORAL fever>100.5 08/08/17 15:30 09/07/17 15:29 Al Hydroxide/Mg Hydroxide (Mylanta II) 30 ml Q6H PRN ORAL dyspepsia 08/08/17 15:30 09/07/17 15:29 Apixaban (Eliquis) 2.5 mg BID ORAL 08/10/17 09:00 09/09/17 08:59 08/12/17 10:05 Aspirin (Ecotrin) 81 mg DAILY ORAL 08/10/17 09:00 09/09/17 08:59 08/12/17 10:04 Atorvastatin Calcium (Lipitor) 20 mg BEDTIME ORAL 08/09/17 21:00 09/08/17 20:59 08/11/17 20:53 Atropine Sulfate (Atropine Opth Daphnie) 1 drop QID LEFT EYE 08/08/17 21:00 09/07/17 20:59 08/12/17 10:03 Brimonidine Tartrate (Alphagan) 1 drop Q8HR LEFT EYE 08/09/17 06:00 09/08/17 05:59 08/11/17 21:05 Clonidine HCl (Catapres) 0.1 mg EVERY 6 HOURS PRN ORAL SBP>160 08/09/17 18:30 09/08/17 18:29 Dextrose (Dextrose 50%) STAT PRN IV Hypoglycemia 08/08/17 15:30 09/07/17 15:29 Donepezil HCl (Aricept) 5 mg QHS ORAL 08/10/17 21:00 09/09/17 20:59 08/11/17 20:53 Dorzolamide HCl (Trusopt) 1 drop THREE TIMES A DAY LEFT EYE 08/09/17 09:00 09/08/17 08:59 08/12/17 10:02 Furosemide (Lasix) 20 mg DAILY ORAL 08/12/17 09:00 09/11/17 08:59 08/12/17 10:04 Lorazepam (Ativan 2mg/ml 1ml) 0.5 mg Q4H PRN IV For Anxiety 08/08/17 15:30 08/15/17 15:29 08/11/17 04:55 Metoprolol Tartrate (Lopressor) 50 mg Q12HR ORAL 08/09/17 21:00 09/08/17 20:59 08/12/17 10:07 Morphine Sulfate (Morphine Sulfate) 1 mg Q4H PRN IVP For Pain 08/08/17 15:30 08/15/17 15:29 Ondansetron HCl (Zofran) 4 mg Q6H PRN IVP Nausea & Vomiting 08/08/17 15:30 09/07/17 15:29 Polyethylene Glycol (Miralax) 17 gm HSPRN PRN ORAL Constipation 08/08/17 21:00 09/07/17 20:59 Prednisolone Acetate (Pred Forte) 1 drop QID LEFT EYE 08/09/17 09:00 09/08/17 08:59 08/12/17 10:03 Risperidone (RisperDAL) 0.5 mg Q12HR ORAL 08/11/17 09:00 09/10/17 08:59 08/12/17 10:05 Timolol Maleate (Timoptic 0.5% Op Soln) 1 drop BID LEFT EYE 08/09/17 09:00 09/08/17 08:59 08/12/17 10:04 Zolpidem Tartrate (Ambien) 5 mg HSPRN PRN ORAL Insomnia 08/08/17 21:00 08/15/17 20:59 TRACI SHARP Aug 12, 2017 12:23
--- NOTE | 2017-08-12 12:30 | Consultation ---
DATE OF CONSULTATION: 08/10/2017 NOTE: POOR AUDIO QUALITY History of Present Illness: This is an 86-year-old female patient, who was admitted to [facility] secondary to atrial fibrillation as she has altered mental status and confusion secondary to progression of the and she has altered mental status, normally taking Aricept. She normally takes Aricept consultation at this time. She is confused, disorganized, making nonsensical statements at bedside. She appears to have no insight into her medical or condition . PAST MEDICAL HISTORY: Hypertension and encephalopathy. ALLERGIES: No known drug allergies. SUBSTANCE ABUSE HISTORY: Denies drug and alcohol use. Social History: Financially supported by [employer] and Medicare. Lives fpc. . Mental Status Examination: . Mood is depressed. Affect is restricted. Thought process is disorganized, illogical. No signs of any suicidal or homicidal thoughts . DIAGNOSES: 1. Paranoid schizophrenia with exacerbation, rule out . 2. Major depression psychotic features, rule out senile dementia. Plan: The patient is discharged on Aricept 5 mg p.o. at bedtime to prevent any decline in her cognition. Chart was reviewed and discussed with staff. Seen and assessed at bedside. Ratna Hendrickson M.D. DR: JADE JOB#: [id number] CC:
--- NOTE | 2017-08-12 12:30 | Consultation ---
DATE OF CONSULTATION: 08/09/2017 PSYCHOTHERAPY CONSULTATION PROGRESS NOTE TREATING ATTENDING PHYSICIAN: Felipe Bacon D.O. History of Present Illness: The patient is an 86-year-old female patient. The patient lives in a 00:39 Nursing Facility. The patient is admitted to the hospital. She had left eye swelling and irritation. Also atrial fibrillation and encephalopathy. The patient has a history of hypertension. She has been slightly confused . She is cooperative . The patient , history of confusion and in thought content. the patient denies suicidal or homicidal thoughts of ideation. The patient does not recall while she was to the hospital. She is very calm and cooperative and denies any admission. The patient has a history of Alzheimer dementia . Past Medical History: History of hypertension and encephalopathy. The patient has a history of Alzheimer dementia. ALLERGIES: The patient allergies. SUBSTANCE ABUSE HISTORY: Social History: There is no indication of alcohol use, illicit substance use, or smoking cigarettes. the patient in nursing facility urgent care. The patient is an 86-year-old female financially sustained through [employer]. Mental Status Examination: The patient is alert and oriented x2, person and place. Her mood is dysphoric. Affect is . Thought process . 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 Plan: This clinician assessed this patient, provided the patient with reality orientation and supportive psychotherapy. Encouraging the patient to participate in treatment milieu . Continue with medication management and behavioral management. This clinician has reviewed the patient's chart and discussed treatment . Tamika Saleh PsyD. DR: JEAN CLAUDE JOB#: [id number] CC:
[2017-08-12 14:56] LABS: BASOPHILS % (AUTO) 0.8 % (0.0-2.0); EOSINOPHILS % (AUTO) 1.3 % (0.0-3.0); LYMPHOCYTES % (AUTO) 26.2 % (20.0-45.0); MEAN CORPUSCULAR HEMOGLOBIN 25.5 PG (27.0-31.0); MEAN CORPUSCULAR HGB CONC 30.4 G/DL (32.0-36.0); MEAN CORPUSCULAR VOLUME 84 FL (80-99); MEAN PLATELET VOLUME 9.3 FL (6.5-10.1); MONOCYTES % (AUTO) 8.3 % (1.0-10.0); NEUTROPHILS % (AUTO) 63.4 % (45.0-75.0); PLATELET COUNT 184 K/UL (150-450); RED BLOOD COUNT 4.85 M/UL (4.20-5.40); RED CELL DISTRIBUTION WIDTH 15.2 % (11.6-14.8); WHITE BLOOD COUNT 6.6 K/UL (4.8-10.8)
--- NOTE | 2017-08-12 15:47 | Infectious Diseases Prog Note ---
Assessment/Plan Problems: (1) Redness of left eye Assessment & Plan: with no evidence of infectious etiology but ischemic retina related and cataract, further management as per vp client services (2) Atrial fibrillation Assessment & Plan: continue rate control meds, cards is following Subjective ROS Limited/Unobtainable: Yes Allergies: Coded Allergies: No Known Allergies (Unverified , 08/08/17) Objective Vital Signs Last 24 Hour Vital Signs Date Time Temp Pulse Resp B/P (MAP) Pulse Ox O2 Delivery O2 Flow Rate FiO2 08/12/17 12:00 97.8 90 20 127/77 99 Room Air 08/12/17 10:07 89 125/65 08/12/17 10:00 89 20 125/65 100 Room Air 08/12/17 08:00 98.2 81 20 115/74 100 Room Air 08/12/17 08:00 74 08/12/17 04:03 97.8 60 20 122/60 100 Room Air 08/12/17 03:48 81 08/12/17 00:00 97.0 70 20 144/63 99 Room Air 08/11/17 23:51 99 08/11/17 20:53 92 131/76 08/11/17 20:03 97.2 92 20 131/76 100 Room Air 08/11/17 19:05 85 08/11/17 16:00 95 Height (Feet): 5 Height (Inches): 1.00 Weight (Pounds): 120 General Appearance: WD/WN, no acute distress HEENT: normocephalic, atraumatic, anicteric, mucous membranes moist Respiratory/Chest: chest wall non-tender, lungs clear, normal breath sounds, no respiratory distress Cardiovascular: normal peripheral pulses, normal rate, regular rhythm, no gallop/murmur Abdomen: normal bowel sounds, soft, non tender, no organomegaly, non distended Extremities: no cyanosis, no clubbing Skin: no rash, no lesions Laboratory Tests Test 08/12/17 10:27 08/12/17 14:36 Sodium Level 139 mEQ/L (135-145) Potassium Level 4.2 mEQ/L (3.4-4.9) Chloride Level 104 mEQ/L (98-107) Carbon Dioxide Level 26 mEQ/L (20-30) Anion Gap 9 (5-15) Blood Urea Nitrogen 25 mg/dL (7-23) H Creatinine 1.0 mg/dL (0.5-0.9) H Estimat Glomerular Filtration Rate mL/min (>60) Glucose Level 105 mg/dL (74-106) Calcium Level 9.1 mg/dL (8.6-10.2) White Blood Count 6.6 K/UL (4.8-10.8) Red Blood Count 4.85 M/UL (4.20-5.40) Hemoglobin 12.4 G/DL (12.0-16.0) Hematocrit 40.7 % (37.0-47.0) Mean Corpuscular Volume 84 FL (80-99) Mean Corpuscular Hemoglobin 25.5 PG (27.0-31.0) L Mean Corpuscular Hemoglobin Concent 30.4 G/DL (32.0-36.0) L Red Cell Distribution Width 15.2 % (11.6-14.8) H Platelet Count 184 K/UL (150-450) Mean Platelet Volume 9.3 FL (6.5-10.1) Neutrophils (%) (Auto) 63.4 % (45.0-75.0) Lymphocytes (%) (Auto) 26.2 % (20.0-45.0) Monocytes (%) (Auto) 8.3 % (1.0-10.0) Eosinophils (%) (Auto) 1.3 % (0.0-3.0) Basophils (%) (Auto) 0.8 % (0.0-2.0) Current Medications Medications (Trade) Dose Ordered Sig/David Route PRN Reason Start Time Stop Time Status Last Admin Dose Admin Acetaminophen (Tylenol) 650 mg Q4H PRN ORAL fever>100.5 08/08/17 15:30 09/07/17 15:29 Al Hydroxide/Mg Hydroxide (Mylanta II) 30 ml Q6H PRN ORAL dyspepsia 08/08/17 15:30 09/07/17 15:29 Apixaban (Eliquis) 2.5 mg BID ORAL 08/10/17 09:00 09/09/17 08:59 08/12/17 10:05 Aspirin (Ecotrin) 81 mg DAILY ORAL 08/10/17 09:00 09/09/17 08:59 08/12/17 10:04 Atorvastatin Calcium (Lipitor) 20 mg BEDTIME ORAL 08/09/17 21:00 09/08/17 20:59 08/11/17 20:53 Atropine Sulfate (Atropine Opth Daphnie) 1 drop QID LEFT EYE 08/08/17 21:00 09/07/17 20:59 08/12/17 13:05 Brimonidine Tartrate (Alphagan) 1 drop Q8HR LEFT EYE 08/09/17 06:00 09/08/17 05:59 08/11/17 21:05 Clonidine HCl (Catapres) 0.1 mg EVERY 6 HOURS PRN ORAL SBP>160 08/09/17 18:30 09/08/17 18:29 Dextrose (Dextrose 50%) STAT PRN IV Hypoglycemia 08/08/17 15:30 09/07/17 15:29 Donepezil HCl (Aricept) 5 mg QHS ORAL 08/10/17 21:00 09/09/17 20:59 08/11/17 20:53 Dorzolamide HCl (Trusopt) 1 drop THREE TIMES A DAY LEFT EYE 08/09/17 09:00 09/08/17 08:59 08/12/17 13:05 Furosemide (Lasix) 20 mg DAILY ORAL 08/12/17 09:00 09/11/17 08:59 08/12/17 10:04 Lorazepam (Ativan 2mg/ml 1ml) 0.5 mg Q4H PRN IV For Anxiety 08/08/17 15:30 08/15/17 15:29 08/11/17 04:55 Metoprolol Tartrate (Lopressor) 50 mg Q12HR ORAL 08/09/17 21:00 09/08/17 20:59 08/12/17 10:07 Morphine Sulfate (Morphine Sulfate) 1 mg Q4H PRN IVP For Pain 08/08/17 15:30 08/15/17 15:29 Ondansetron HCl (Zofran) 4 mg Q6H PRN IVP Nausea & Vomiting 08/08/17 15:30 09/07/17 15:29 Polyethylene Glycol (Miralax) 17 gm HSPRN PRN ORAL Constipation 08/08/17 21:00 09/07/17 20:59 Prednisolone Acetate (Pred Forte) 1 drop QID LEFT EYE 08/09/17 09:00 09/08/17 08:59 08/12/17 13:05 Risperidone (RisperDAL) 0.5 mg Q12HR ORAL 08/11/17 09:00 09/10/17 08:59 08/12/17 10:05 Timolol Maleate (Timoptic 0.5% Op Soln) 1 drop BID LEFT EYE 08/09/17 09:00 09/08/17 08:59 08/12/17 10:04 Zolpidem Tartrate (Ambien) 5 mg HSPRN PRN ORAL Insomnia 08/08/17 21:00 08/15/17 20:59 Val Kaur M.D. Aug 12, 2017 15:47
[2017-08-12] MEDS ORDERED: Mylanta II UD 30ml ORAL PRN (16:30)
[2017-08-12] MEDS ORDERED: LORazepam Inj 2mg/ml 1ml IV PRN (16:30)
[2017-08-12] MEDS ORDERED: Morphine Sulfate 2mg/ml Inj IVP PRN (16:30)
[2017-08-12] MEDS ORDERED: Miralax 17gm pkt ORAL PRN (18:00)
--- NOTE | 2017-08-12 19:01 | Cardiology Report ---
APPROVED REPORT EXAM: Two-dimensional and M-mode echocardiogram with Doppler and color Doppler. INDICATION Atrial Fibrillation M-Mode DIMENSIONS IVSd1.2 (0.7-1.1cm)Left Atrium (MM)4.6 (1.6-4.0cm) LVDd4.7 (3.5-5.6cm)Aortic Root2.5 (2.0-3.7cm) PWd1.0 (0.7-1.1cm)Aortic Cusp Exc.1.5 (1.5-2.0cm) LVDs3.7 (2.5-4.0cm) PWs1.6 cm Normal left ventricular chamber size, moderate global hypokinesis . Left ventricular ejection fraction estimated to be 30-35%. No evidence of left ventricular hypertrophy. No evidence of pericardial or pleural effusion. Mild bi-atrial enlargement by 2D. Mild aortic valve sclerosis with adequate cusp excursion. Thickened mitral valve leaflets with normal excursion. Mild mitral annulus and aortic root calcification. Pulmonic valve is well visualized. Normal tricuspid valve structure. IVC is normal in size and collapsible with respiration. A color flow and spectral Doppler study was performed and revealed: No aortic regurgitation. Moderate to severe mitral regurgitation. Mitral diastolic function not obtainable due to A-FIB. Moderate tricuspid regurgitation. Tricuspid systolic velocities suggests peak right ventricular systolic pressure of 33mmHg Pulmonic regurgitation present.
[2017-08-12] MEDS ORDERED: Donepezil 5mg Tab ORAL SCH (21:00)
[2017-08-12] MEDS ORDERED: Zolpidem 5mg tab ORAL PRN (21:00)
[2017-08-12] MEDS ORDERED: Atorvastatin 20mg tab ORAL SCH (21:00)
--- NOTE | 2017-08-12 21:15 | Progress Note ---
DATE: 08/12/2017 Subjective: This is an 86-year-old female patient with atrial fibrillation. Plan: I am going to continue treatment with psychotropic medications to prevent any further decline in cognition. Chart was reviewed and discussed with staff. Seen and assessed at the bedside. Continue treatment with Risperdal to reduce agitation and irritability. Ratna Hendrickson M.D. DR: Tanya JOB#: [id number] CC:
--- NOTE | 2017-08-12 21:32 | Nephrology Progress Note ---
Assessment/Plan Assessment 1.hyperkalemia 2.HTN 3.afib Plan plan to continue low k diet hold BONIFACIO monitoring renal function avoid NSAID Subjective Constitutional: Reports: no symptoms HEENT: Reports: no symptoms Genitourinary: Reports: no symptoms Neurologic/Psychiatric: Reports: no symptoms Subjective NAD no events over night Objective Objective Last 24 Hour Vital Signs Date Time Temp Pulse Resp B/P (MAP) Pulse Ox O2 Delivery O2 Flow Rate FiO2 08/12/17 20:34 74 147/84 08/12/17 20:00 96.3 74 20 147/84 100 Room Air 08/12/17 16:00 97.6 86 20 128/76 100 Room Air 08/12/17 12:00 97.8 90 20 127/77 99 Room Air 08/12/17 10:07 89 125/65 08/12/17 10:00 89 20 125/65 100 Room Air 08/12/17 08:00 98.2 81 20 115/74 100 Room Air 08/12/17 08:00 74 08/12/17 04:03 97.8 60 20 122/60 100 Room Air 08/12/17 03:48 81 08/12/17 00:00 97.0 70 20 144/63 99 Room Air 08/11/17 23:51 99 Intake and Output 08/12/17 08/13/17 19:00 07:00 Intake Total 450 ml Balance 450 ml Intake Oral 450 ml # Voids 1 Laboratory Tests 08/12/17 10:27: Sodium Level 139, Potassium Level 4.2, Chloride Level 104, Carbon Dioxide Level 26, Anion Gap 9, Blood Urea Nitrogen 25H, Creatinine 1.0H, Estimat Glomerular Filtration Rate , Glucose Level 105, Calcium Level 9.1 08/12/17 14:36: White Blood Count 6.6, Red Blood Count 4.85, Hemoglobin 12.4, Hematocrit 40.7, Mean Corpuscular Volume 84, Mean Corpuscular Hemoglobin 25.5L, Mean Corpuscular Hemoglobin Concent 30.4L, Red Cell Distribution Width 15.2H, Platelet Count 184 , Mean Platelet Volume 9.3, Neutrophils (%) (Auto) 63.4, Lymphocytes (%) (Auto) 26.2, Monocytes (%) (Auto) 8.3, Eosinophils (%) (Auto) 1.3, Basophils (%) (Auto ) 0.8 Height (Feet): 5 Height (Inches): 1.00 Weight (Pounds): 120 Objective HEENT: normocephalic,no JVP, no LAD ,EOMI Respiratory/Chest: chest wall non-tender, lungs clear Cardiovascular: normal peripheral pulses, normal rate Abdomen: normal bowel sounds Extremities: no cyanosis,no edema ASCENCION RAMIREZ Aug 12, 2017 21:32
[2017-08-13] VITALS: BP 139/81
[2017-08-13 04:00] VITALS: BP 132/79
[2017-08-13] MEDS: Brimonidine 0.2% Opth Sol LEFT EYE SCH (05:47)
[2017-08-13 08:00] VITALS: BP 127/66
--- NOTE | 2017-08-13 08:30 | Consultation ---
DATE OF CONSULTATION: 08/11/2017 NEPHROLOGY CONSULTATION REFERRING PHYSICIAN: Felipe Bacon D.O. REASON FOR CONSULTATION: Hyperkalemia and electrolyte imbalance. History Of Present Illness: The patient is an unfortunate 00:29 with past medical history significant for history of chronic kidney disease, hypertension, history of psychiatric problem, dementia, COPD, and hypertension, who was referred to [facility] Emergency Room for evaluation of left eye swelling and pain. Upon arrival in the ER, the patient was found to be in atrial fibrillation with rapid ventricular response. The patient was started on increased metoprolol and started on Eliquis by Cardiology, but found to have a persistent hyperkalemia. Of note, the patient was on lisinopril prior to the admission. The patient was given Kayexalate for 01:09his hyperkalemia. 01:11 He was called for management of renal disease and electrolyte imbalance. Unfortunately, the patient is unable to provide meaningful history for me, so most of my history is obtained through reviewing the information from the chart and from the record from the emergency room. PAST MEDICAL HISTORY: Includin. History of hypertension. 2. History of GERD. 3. History of chronic kidney disease, unknown baseline creatinine. 4. History of chronic obstructive pulmonary disease. 5. History of hypertension. PAST SURGICAL HISTORY: None. MEDICATIONS: [facility] the [facility] are includin. Tylenol 650 mg p.r.n. pain. 2. Rivaroxaban 20 mg at bedtime. 3. Renagel 800 mg p.o. daily. 4. Nifedipine 30 mg p.o. b.i.d. 5. Protonix 40 mg p.o. daily. 6. Ambien one tablet p.o. daily. 7. Magnesium oxide 30 mL p.r.n. as needed. 8. Metoprolol 25 mg p.o. daily. 9. Enalapril 10 mg p.o. daily. ALLERGIES: No known drug allergies. Social History: 02:18 He is a prison resident. There is no current history of tobacco, alcohol, or drug use. FAMILY HISTORY: Noncontributory. Review Of Systems: Unable to obtain due to the patient's condition and mental status. PHYSICAL EXAMINATION: Vital Signs: The patient has a temperature of 98 degrees, blood pressure 130/66, pulse rate of 100, respiratory rate of 16, and temperature of 97 degrees. Head And Neck: No JVP. No LAD. No thyromegaly. Extraocular movements intact. Pupils are reactive to light and accommodation. LUNGS: Clear to auscultation. CARDIAC: Irregularly irregular. S1 and S2. No murmur. No rub. ABDOMEN: Soft, nontender, and nondistended. Extremities: Trace edema. No clubbing. No cyanosis. The patient opened up 03:10 his eyes with verbal stimuli and follows simple commands. Laboratory Values: The patient has a sodium 139, potassium 5.3, 103 chloride, 21 bicarbonate, BUN of 21, creatinine of 1.1, and calcium of 8.5. Total bilirubin of 10.1. Total protein of 6.4. Albumin of 3.7. Cholesterol of 177. LDL of 91 and HDL of 61. UA revealed specific gravity of 1.015, pH of 5, leukocyte esterase 1+, WBC 0 to 2, RBCs 2 to 4, and bacteria few. ASSESSMENT: 1. Hyperkalemia, which is most likely due to BONIFACIO inhibitor. The patient was on lisinopril and causing 04:11 him to have persistent hyperkalemia. 2. Chronic kidney disease. The patient's, at this point, creatinine is 1.1, although has 04:19 creatinine of 1.3, which I would like to investigate more. 3. Hyperphosphatemia. The patient is on Renagel for it, but there is no evidence of chronic kidney disease. So, at this point, I would like to consider Renagel and check the phosphorus level. 4. Atrial fibrillation with rapid ventricular response. Plan: Plan for the patient to hold lisinopril. Obtain random urine protein creatinine ratio to calculate the proteinuria. Check the urine sodium and creatinine to calculate fractional excretion of sodium. I would place the patient on low potassium diet. I would hold lisinopril at this time. Again, I would like to thank, Dr. Felipe Bacon for allowing me to participate in the care of this patient. Elis Loredo M.D. DR: Elio JOB#: [id number] CC:
--- NOTE | 2017-08-13 08:31 | Progress Note ---
DATE: 08/11/2017 An 86-year-old female patient with atrial fibrillation, history of ability . Plan: The patient is going to continue Risperdal 2.5 mg . Chart reviewed and discussed with staff. Seen and assessed at the bedside . Ratna Hendrickson M.D. DR: GLORIA JOB#: [id number] CC:
--- NOTE | 2017-08-13 08:32 | Progress Note ---
DATE: 08/10/2017 PSYCHOTHERAPY CONSULTATION PROGRESS NOTE TREATING ATTENDING PHYSICIAN: Felipe Bacon D.O. Subjective: The patient is an 86-year-old female patient. The patient remains slightly confused and disorganized in her thought process. She is cooperative, participating in her treatment. This clinician assessed the patient. The patient states that she feels slightly helpless due to her current medical condition and wants to return back home. She states that she feels tired being in the hospital. This clinician assessed the patient. Provided the patient with reality orientation and supportive psychotherapy. Encouraging the patient to participate in treatment milieu 00:57. Mental status examination: The patient is alert and oriented x2, person and place. Mood is depressed. Affect is blunted. Thought process is fairly disorganized. The patient has poor attention and concentration. Plan: This clinical provided the patient with reality orientation and supportive psychotherapy. Continue with medication management and behavioral management. This clinician has reviewed the patient's chart and discussed the treatment with the nursing staff. Tamika Saleh PsyD. DR: LETI JOB#: [id number] CC:
[2017-08-13] MEDS: Pred Forte 1% Opth Susp 1ml LEFT EYE SCH (08:34)
[2017-08-13] MEDS: Eliquis 2.5mg tablet ORAL SCH (08:34)
[2017-08-13] MEDS: Dorzolamide 2% 10ml Btl LEFT EYE SCH (08:35)
[2017-08-13] MEDS: Timolol 0.5% Op Soln 2.5ml LEFT EYE SCH (08:35)
[2017-08-13] MEDS: Metoprolol Tartrate 50mg tab ORAL SCH (08:36)
[2017-08-13 08:44] LABS: BASOPHILS % (AUTO) 0.9 % (0.0-2.0); LYMPHOCYTES % (AUTO) 23.1 % (20.0-45.0); MEAN CORPUSCULAR HGB CONC 30.8 G/DL (32.0-36.0); MEAN CORPUSCULAR VOLUME 84 FL (80-99); MEAN PLATELET VOLUME 9.4 FL (6.5-10.1); MONOCYTES % (AUTO) 5.2 % (1.0-10.0); NEUTROPHILS % (AUTO) 69.8 % (45.0-75.0); PLATELET COUNT 186 K/UL (150-450); RED BLOOD COUNT 5.65 M/UL (4.20-5.40); RED CELL DISTRIBUTION WIDTH 15.4 % (11.6-14.8); WHITE BLOOD COUNT 5.4 K/UL (4.8-10.8)
[2017-08-13 09:00] LABS: ANION GAP 11 (5-15); CALCIUM 9.9 mg/dL (8.6-10.2); CARBON DIOXIDE 27 mEQ/L (20-30); CHLORIDE 103 mEQ/L (98-107); HEMOLYSIS 8; POTASSIUM 3.7 mEQ/L (3.4-4.9); SODIUM 141 mEQ/L (135-145)
[2017-08-13] MEDS ORDERED: Aspirin EC 81mg tab ORAL SCH (09:00)
[2017-08-13] MEDS ORDERED: ATROPINE SULFAT15 ML OP (11:42)
[2017-08-13] MEDS ORDERED: FUROSEMIDE20 M1 ORAL (11:42)
[2017-08-13] MEDS ORDERED: ELIQUIS2.5 MG PO (11:42)
[2017-08-13] MEDS ORDERED: PRED FORTE1 ML OP (11:42)
[2017-08-13] MEDS ORDERED: BRIMONIDINE TART5 ML LEFT EYE (11:42)
[2017-08-13] MEDS ORDERED: RISPERDAL0.5 MG ORAL (11:42)
[2017-08-13] MEDS ORDERED: TIMOPTIC 0.5%1 DRO1 LEFT EYE (11:42)
[2017-08-13] MEDS ORDERED: TRUSOPT10 ML LEFT EYE (11:42)
[2017-08-13] MEDS ORDERED: METOPROLOL TART50 M1 ORAL (11:42)
[2017-08-13 11:58] VITALS: BP 143/70
--- NOTE | 2017-08-13 13:41 | Nephrology Progress Note ---
Assessment/Plan Assessment 1.hyperkalemia 2.HTN 3.afib Plan plan to continue low k diet hold BONIFACIO monitoring renal function avoid NSAID Subjective Subjective NAD no events over night Objective Objective Last 24 Hour Vital Signs Date Time Temp Pulse Resp B/P (MAP) Pulse Ox O2 Delivery O2 Flow Rate FiO2 08/13/17 11:58 96.4 72 18 143/70 100 Room Air 08/13/17 08:36 78 127/66 08/13/17 08:00 97.3 78 18 127/66 100 Room Air 08/13/17 04:00 96.5 73 20 132/79 98 Room Air 08/13/17 00:00 96.9 76 20 139/81 99 Room Air 08/12/17 20:34 74 147/84 08/12/17 20:00 96.3 74 20 147/84 100 Room Air 08/12/17 16:00 97.6 86 20 128/76 100 Room Air Intake and Output 08/13/17 08/14/17 19:00 07:00 Intake Total 600 ml Balance 600 ml Intake Oral 600 ml # Voids 3 # Bowel Movements 1 Laboratory Tests 08/12/17 14:36: White Blood Count 6.6, Red Blood Count 4.85, Hemoglobin 12.4, Hematocrit 40.7, Mean Corpuscular Volume 84, Mean Corpuscular Hemoglobin 25.5L, Mean Corpuscular Hemoglobin Concent 30.4L, Red Cell Distribution Width 15.2H, Platelet Count 184 , Mean Platelet Volume 9.3, Neutrophils (%) (Auto) 63.4, Lymphocytes (%) (Auto) 26.2, Monocytes (%) (Auto) 8.3, Eosinophils (%) (Auto) 1.3, Basophils (%) (Auto ) 0.8 08/13/17 05:12: Urine Eosinophils None seen 08/13/17 08:30: White Blood Count 5.4, Red Blood Count 5.65H, Hemoglobin 14.7, Hematocrit 47.7H , Mean Corpuscular Volume 84, Mean Corpuscular Hemoglobin 26.0L, Mean Corpuscular Hemoglobin Concent 30.8L, Red Cell Distribution Width 15.4H, Platelet Count 186, Mean Platelet Volume 9.4, Neutrophils (%) (Auto) 69.8, Lymphocytes (%) (Auto) 23.1, Monocytes (%) (Auto) 5.2, Eosinophils (%) (Auto) 1.0, Basophils (%) (Auto) 0.9, Sodium Level 141, Potassium Level 3.7, Chloride Level 103, Carbon Dioxide Level 27, Anion Gap 11, Blood Urea Nitrogen 20, Creatinine 1.0H, Estimat Glomerular Filtration Rate , Glucose Level 143H, Calcium Level 9.9 Height (Feet): 5 Height (Inches): 1.00 Weight (Pounds): 120 Objective HEENT: normocephalic,no JVP, no LAD ,EOMI Respiratory/Chest: chest wall non-tender, lungs clear Cardiovascular: normal peripheral pulses, normal rate Abdomen: normal bowel sounds Extremities: no cyanosis,no edema ASCENCION RAMIREZ Aug 13, 2017 13:41
--- NOTE | 2017-08-13 13:45 | General Progress Note ---
Assessment/Plan Problem List: (1) UTI (urinary tract infection) ICD Codes: N39.0 - Urinary tract infection, site not specified SNOMED: 53977715 (2) HTN (hypertension) ICD Codes: I10 - Essential (primary) hypertension SNOMED: 70396698 (3) Redness of left eye ICD Codes: H57.8 - Other specified disorders of eye and adnexa SNOMED: 70202362 (4) Atrial fibrillation with RVR ICD Codes: I48.91 - Unspecified atrial fibrillation SNOMED: 287233611831118 (5) CAD (coronary artery disease) ICD Codes: I25.10 - Atherosclerotic heart disease of [place] coronary artery without angina pectoris SNOMED: 41151871 (6) Alzheimer's dementia ICD Codes: G30.9 - Alzheimer's disease, unspecified SNOMED: 94807302 (7) COPD (chronic obstructive pulmonary disease) ICD Codes: J44.9 - Chronic obstructive pulmonary disease, unspecified SNOMED: 56080227 (8) Dementia ICD Codes: F03.90 - Unspecified dementia without behavioral disturbance SNOMED: 02179227 Status: stable Assessment/Plan ot pt diet abx ophthal f/u abx dc to snf Subjective Constitutional: Reports: weakness Allergies: Coded Allergies: No Known Allergies (Unverified , 08/08/17) All Systems: reviewed and negative except above Subjective sl anxious in bed Objective Last 24 Hour Vital Signs Date Time Temp Pulse Resp B/P (MAP) Pulse Ox O2 Delivery O2 Flow Rate FiO2 08/13/17 11:58 96.4 72 18 143/70 100 Room Air 08/13/17 08:36 78 127/66 08/13/17 08:00 97.3 78 18 127/66 100 Room Air 08/13/17 04:00 96.5 73 20 132/79 98 Room Air 08/13/17 00:00 96.9 76 20 139/81 99 Room Air 08/12/17 20:34 74 147/84 08/12/17 20:00 96.3 74 20 147/84 100 Room Air 08/12/17 16:00 97.6 86 20 128/76 100 Room Air Intake and Output 08/13/17 08/14/17 19:00 07:00 Intake Total 600 ml Balance 600 ml Intake Oral 600 ml # Voids 3 # Bowel Movements 1 Laboratory Tests 08/12/17 14:36: White Blood Count 6.6, Red Blood Count 4.85, Hemoglobin 12.4, Hematocrit 40.7, Mean Corpuscular Volume 84, Mean Corpuscular Hemoglobin 25.5L, Mean Corpuscular Hemoglobin Concent 30.4L, Red Cell Distribution Width 15.2H, Platelet Count 184 , Mean Platelet Volume 9.3, Neutrophils (%) (Auto) 63.4, Lymphocytes (%) (Auto) 26.2, Monocytes (%) (Auto) 8.3, Eosinophils (%) (Auto) 1.3, Basophils (%) (Auto ) 0.8 08/13/17 05:12: Urine Eosinophils None seen 08/13/17 08:30: White Blood Count 5.4, Red Blood Count 5.65H, Hemoglobin 14.7, Hematocrit 47.7H , Mean Corpuscular Volume 84, Mean Corpuscular Hemoglobin 26.0L, Mean Corpuscular Hemoglobin Concent 30.8L, Red Cell Distribution Width 15.4H, Platelet Count 186, Mean Platelet Volume 9.4, Neutrophils (%) (Auto) 69.8, Lymphocytes (%) (Auto) 23.1, Monocytes (%) (Auto) 5.2, Eosinophils (%) (Auto) 1.0, Basophils (%) (Auto) 0.9, Sodium Level 141, Potassium Level 3.7, Chloride Level 103, Carbon Dioxide Level 27, Anion Gap 11, Blood Urea Nitrogen 20, Creatinine 1.0H, Estimat Glomerular Filtration Rate , Glucose Level 143H, Calcium Level 9.9 Height (Feet): 5 Height (Inches): 1.00 Weight (Pounds): 120 General Appearance: lethargic, confused EENT: normal ENT inspection Neck: normal alignment Cardiovascular: normal peripheral pulses, normal rate, regular rhythm Respiratory/Chest: chest wall non-tender, lungs clear, normal breath sounds Abdomen: normal bowel sounds, non tender, soft Extremities: normal inspection Edema: no edema noted Arm (L), no edema noted Arm (R), no edema noted Leg (L), no edema noted Leg (R), no edema noted Pedal (L), no edema noted Pedal (R), no edema noted Generalized Neurologic: motor weakness Skin: normal pigmentation, warm/dry JENNIFER WELCH Aug 13, 2017 13:45
--- NOTE | 2017-08-13 14:43 | Pulmonology Progress Note ---
Assessment/Plan Problems: (1) Atrial fibrillation with RVR (2) Redness of left eye (3) COPD (chronic obstructive pulmonary disease) (4) Dementia (5) CAD (coronary artery disease) (6) Alzheimer's dementia Assessment/Plan heart rate better controlled at 70s check echo f/u ophthalmology recommendations titrate cardiac meds might go to med/surg dc planning in progress Subjective ROS Limited/Unobtainable: No Interval Events: no new complains Allergies: Coded Allergies: No Known Allergies (Unverified , 08/08/17) Objective Last 24 Hour Vital Signs Date Time Temp Pulse Resp B/P (MAP) Pulse Ox O2 Delivery O2 Flow Rate FiO2 08/13/17 11:58 96.4 72 18 143/70 100 Room Air 08/13/17 08:36 78 127/66 08/13/17 08:00 97.3 78 18 127/66 100 Room Air 08/13/17 04:00 96.5 73 20 132/79 98 Room Air 08/13/17 00:00 96.9 76 20 139/81 99 Room Air 08/12/17 20:34 74 147/84 08/12/17 20:00 96.3 74 20 147/84 100 Room Air 08/12/17 16:00 97.6 86 20 128/76 100 Room Air Intake and Output 08/13/17 08/14/17 19:00 07:00 Intake Total 600 ml Balance 600 ml Intake Oral 600 ml # Voids 3 # Bowel Movements 1 General Appearance: WD/WN HEENT: normocephalic, atraumatic Respiratory/Chest: chest wall non-tender, lungs clear Cardiovascular: normal peripheral pulses, normal rate Abdomen: normal bowel sounds, soft, non tender Skin: no rash Neurologic/Psychiatric: enrollment management coordinator II-XII grossly normal Lymphatic: no neck adenopathy Laboratory Tests 08/13/17 05:12: Urine Eosinophils None seen 08/13/17 08:30: White Blood Count 5.4, Red Blood Count 5.65H, Hemoglobin 14.7, Hematocrit 47.7H , Mean Corpuscular Volume 84, Mean Corpuscular Hemoglobin 26.0L, Mean Corpuscular Hemoglobin Concent 30.8L, Red Cell Distribution Width 15.4H, Platelet Count 186, Mean Platelet Volume 9.4, Neutrophils (%) (Auto) 69.8, Lymphocytes (%) (Auto) 23.1, Monocytes (%) (Auto) 5.2, Eosinophils (%) (Auto) 1.0, Basophils (%) (Auto) 0.9, Sodium Level 141, Potassium Level 3.7, Chloride Level 103, Carbon Dioxide Level 27, Anion Gap 11, Blood Urea Nitrogen 20, Creatinine 1.0H, Estimat Glomerular Filtration Rate , Glucose Level 143H, Calcium Level 9.9 TRACI SHARP Aug 13, 2017 14:43
--- NOTE | 2017-08-13 22:43 | Cardiology Progress Note ---
Assessment/Plan Assessment/Plan 1. Atrial fibrillation with controlled ventricular response, continue metoprolol and Eliquis. 2. Severe mitral regurgitation, may need to consider a small dose of diuretics. 3. Normal LV systolic function with LVEF at 50%. Subjective Subjective Sinus rhythm at 72. Objective Last 24 Hour Vital Signs Date Time Temp Pulse Resp B/P (MAP) Pulse Ox O2 Delivery O2 Flow Rate FiO2 08/13/17 11:58 96.4 72 18 143/70 100 Room Air 08/13/17 08:36 78 127/66 08/13/17 08:00 97.3 78 18 127/66 100 Room Air 08/13/17 04:00 96.5 73 20 132/79 98 Room Air 08/13/17 00:00 96.9 76 20 139/81 99 Room Air Intake and Output 08/13/17 08/14/17 18:59 06:59 Intake Total 600 ml Balance 600 ml Intake Oral 600 ml # Voids 3 # Bowel Movements 1 2D Echo: LVEF 50%, MARIS, Mod TR with RVSP 33 mmHg, Severe MR, Diastolic fxn ?? Laboratory Tests Test 08/13/17 05:12 08/13/17 08:30 Urine Eosinophils None seen White Blood Count 5.4 K/UL (4.8-10.8) Red Blood Count 5.65 M/UL (4.20-5.40) H Hemoglobin 14.7 G/DL (12.0-16.0) Hematocrit 47.7 % (37.0-47.0) H Mean Corpuscular Volume 84 FL (80-99) Mean Corpuscular Hemoglobin 26.0 PG (27.0-31.0) L Mean Corpuscular Hemoglobin Concent 30.8 G/DL (32.0-36.0) L Red Cell Distribution Width 15.4 % (11.6-14.8) H Platelet Count 186 K/UL (150-450) Mean Platelet Volume 9.4 FL (6.5-10.1) Neutrophils (%) (Auto) 69.8 % (45.0-75.0) Lymphocytes (%) (Auto) 23.1 % (20.0-45.0) Monocytes (%) (Auto) 5.2 % (1.0-10.0) Eosinophils (%) (Auto) 1.0 % (0.0-3.0) Basophils (%) (Auto) 0.9 % (0.0-2.0) Sodium Level 141 mEQ/L (135-145) Potassium Level 3.7 mEQ/L (3.4-4.9) Chloride Level 103 mEQ/L (98-107) Carbon Dioxide Level 27 mEQ/L (20-30) Anion Gap 11 (5-15) Blood Urea Nitrogen 20 mg/dL (7-23) Creatinine 1.0 mg/dL (0.5-0.9) H Estimat Glomerular Filtration Rate mL/min (>60) Glucose Level 143 mg/dL (74-106) H Calcium Level 9.9 mg/dL (8.6-10.2) Objective HEENT: Atraumatic and normocephalic. Anicteric. Pupils are equal, round, and reactive to light and accommodation. There is corneal erythema over the left eye. Neck: JVP less than 5 cm. No carotid bruit. Carotid upstrokes 2+ bilaterally. LUNGS: Clear to auscultation bilaterally. Cardiovascular: Normal S1 and S2. Irregularly irregular rhythm. No murmurs, gallops, or rubs. PMI is is at fourth intercostal space at the midclavicular line. Abdomen: Soft, nontender, and nondistended. No hepatosplenomegaly. Positive bowel sounds. EXTREMITIES: No evidence of edema, clubbing, or cyanosis. JACLYN LUNDBERG Aug 13, 2017 22:43
--- NOTE | 2017-08-14 08:30 | Progress Note ---
DATE: 08/13/2017 Subjective: This is an 86-year-old female patient with atrial fibrillation. Plan: Continue treatment with 00:07 disorganized thought 00:09 medications to prevent any further decline in cognition. She has altered mental status and confusion. Continue treatment with Risperdal as well to reduce the 00:21 agitation. Chart reviewed and discussed with staff. Seen and assessed at the bedside. Ratna Hendrickson M.D. DR: MEGAN JOB#: [id number] CC:
--- NOTE | 2017-08-14 09:45 | Discharge Summary ---
Discharge Summary Hospital Course Date of Admission Aug 08, 2017 at 15:08 Date of Discharge Aug 13, 2017 at 13:28 Admitting Diagnosis a-fib rvr, left eye redness HPI Zayda Friend is a 86 year old female who was admitted on Aug 08, 2017 at 15: 08 for Atrial Fibrillation, Left Eye Redness Hospital Course dc summary #[id number] Discharge Medications Continued Medications: Apixaban (Eliquis) 2.5 Mg Tablet 2.5 MG PO BID, TAB Atorvastatin Calcium* (Atorvastatin Calcium*) 20 Mg Tablet 20 MG ORAL BEDTIME, TAB Atropine Sulfate (Atropine Sulfate) 2 Ml Drops 15 ML OP QID, ML Brimonidine Tartrate* (Alphagan*) 5 Ml Drops 1 DROP LEFT EYE EVERY 8 HOURS, ML Donepezil Hcl* (Aricept*) 5 Mg Tablet 5 MG ORAL DAILY, TAB Dorzolamide Hcl* (Trusopt*) 10 Ml Drops 1 DROP LEFT EYE TID, #1 ML 0 Refills Furosemide* (Lasix*) 20 Mg Tablet 20 MG ORAL DAILY, TAB Metoprolol Tartrate* (Metoprolol Tartrate*) 50 Mg Tablet 50 MG ORAL EVERY 12 HOURS, TAB Prednisolone Acetate (Pred Forte) 1 Ml Drops.susp 1 ML OP QID Risperidone* (Risperdal*) 0.5 Mg Tablet 0.5 MG ORAL EVERY 12 HOURS, #30 TAB 0 Refills Timolol Maleate (Timolol Maleate) 5 Ml Drops 1 DROP LEFT EYE TWICE A DAY, #1 ML 0 Refills Discharge Discharge Disposition Patient was discharged to SNF/Subacute Facility(03) Discharge Diagnoses: Discharge Instructions Discharge Instructions Special Instructions I have been assigned to complete a D/C Summary on this account. I was not involved in the patient management Joyce Ward NP (Vanchtein) Aug 14, 2017 09:45
--- NOTE | 2017-08-15 01:30 | Discharge Summary ---
DATE OF ADMISSION: 08/08/2017 DATE OF DISCHARGE: 08/13/2017 Reason for admission: 86-year-old female, a resident of the half-way facility with past medical history significant for COPD, GERD, psychiatric disorder as well as chronic kidney disease, presented with left eye pain and redness. In addition, rapid heartbeat was noted at the half-way facility by nursing staff. Workup in the emergency department revealed atrial fibrillation with rapid ventricular response, heart rate -123. Troponin was negative. No leukocytosis. Stable hemoglobin and hematocrit. BUN -14 and creatinine -1.0. Pro BNP- 3292. Chest x-ray revealed no acute cardiopulmonary pathology but showed cardiomegaly. The patient was admitted for further management. ADMITTING DIAGNOSES: 1. Atrial fibrillation with rapid ventricular response. 2. Left eye redness. 3. Chronic obstructive pulmonary disease. 4. Coronary artery disease. 5. Alzheimer dementia. Hospital Stay: The patient was admitted to telemetry floor. Rate was controlled initially with IV Cardizem. Cardiology consult was requested. Rate was later controlled with beta-rudy. Anticoagulation started with Eliquis. Echocardiogram revealed ejection fraction of 30% to 35%, right ventricular systolic pressure of 32, evidence of [id number] mitral regurgitation. Healthcare Prof had seen and evaluated the patient. Per radio interference supervisor, continue beta-rudy and anticoagulation, continue statin and low-dose of diuretic for severe mitral regurgitation. BONIFACIO was on hold secondary to hyperkalemia. Medical management for cardiomyopathy to be followed up as an outpatient. Document Advisor had seen and evaluated the patient and diagnosed the patient with neovascular glaucoma of the left eye as well as the cataract in both eyes. He recommended to continue topical drops which he prescribed. He also recommended outpatient care for bilateral cataracts and retina specialist consultation. Specialist in retina had seen and evaluated the patient and recommended to continue topical drops and consider intravitreal injection and/or laser treatment. However, the patient was agitated, and greenstone polisher operator was unable to discuss with the patient further plan of care and would discuss with the family as outpatient followup. Psychiatrist was requested for psychiatric issue management. He diagnosed the patient with paranoid schizophrenia exacerbation and major depression with psychiatric features. Psychiatric medication regimen was optimized. Blood pressure was controlled with current medication regimen. The patient was stable for discharge back to half-way facility. FINAL DIAGNOSES: 1. Atrial fibrillation with rapid ventricular response, resolved. 2. Neovascular glaucoma, left eye. 3. Cataract, both eyes. 4. Cardiomyopathy. 5. Severe mitral regurgitation. 6. Chronic obstructive pulmonary disease. 7. Alzheimer dementia. 8. Hyperkalemia, resolved. 9. Hypertension. DISCHARGE MEDICATIONS: See medication reconciliation list. Discharge Instructions: The patient was discharged to half-way facility. Followup: Follow up with medical doctor and follow up with ophthalmology as an outpatient. Patsy Vallejo M.D. I have been assigned to dictate discharge summary on this account and I was not involved in the patient's management. Joyce MonroeBatavia Veterans Administration HospitalGracie N.PRandy DR: Reny JOB#: [id number] CC: MARIANNE
== END 2017-08-13 13:28 | DRG 308 ==
LOC: EDBD 13:22 → EMR 14:50 → 2E 15:08 → EDBEDREQ 18:20 → 2E 20:30 → 4E 08-12 15:44
DX: I48.91 Unspecified atrial fibrillation (principal); G93.40 Encephalopathy, unspecified; I42.9 Cardiomyopathy, unspecified; F32.3 Major depressive disorder, single episode, severe with psychotic features; N39.0 Urinary tract infection, site not specified; H35.82 Retinal ischemia; E87.5 Hyperkalemia; E83.39 Other disorders of phosphorus metabolism; F20.0 Paranoid schizophrenia; J44.9 Chronic obstructive pulmonary disease, unspecified; G30.9 Alzheimer's disease, unspecified; F02.80 Dementia in other diseases classified elsewhere, unspecified severity, without behavioral disturbance, psychotic disturbance, mood disturbance, and anxiety; I25.10 Atherosclerotic heart disease of native coronary artery without angina pectoris; I34.0 Nonrheumatic mitral (valve) insufficiency; H26.9 Unspecified cataract; H40.89 Other specified glaucoma; I12.9 Hypertensive chronic kidney disease with stage 1 through stage 4 chronic kidney disease, or unspecified chronic kidney disease; N18.9 Chronic kidney disease, unspecified
CPT/HCPCS: 36415; 71010; 76511; 80048; 80053; 80061; 81003; 82550; 82553; 83690; 83880; 84132; 84443; 84484; 85025; 87081; 89050; 93005; 93306; 93880; 93882; 93970; 97803; 99285

== ENCOUNTER 2019-04-07 16:16 | Emergency (ER) | payer MEDICARE, MEDICAID ==
[~2019-04-07] VITALS: Ht 157.5 cm; Wt 65.8 kg
[~2019-04-07 16:16] MED LIST: ACETAMINOPHEN325 M1 ORAL; ARICEPT5 MG ORAL; ASPIR 8181 MG ORAL; ATORVASTATIN CA20 MG ORAL; ATROPINE SULFAT15 ML OP; BRIMONIDINE TART5 ML LEFT EYE; CATAPRES0.1 MG ORAL; ELIQUIS2.5 MG PO; ENALAPRIL MALEA10 MG ORAL; FUROSEMIDE20 M1 ORAL; Fluorescein Strips LEFT EYE ONE; METOPROLOL TART25 MG ORAL; METOPROLOL TART50 M1 ORAL; MILK OF MA400 MG/51 ORAL; MULTIVITAMINS1 EAC2 ORAL; PANTOPRAZOLE SO40 MG ORAL; PRED FORTE1 ML OP; PROCARDIA XL30 MG ORAL; RENAGEL800 MG ORAL; RISPERDAL0.5 MG ORAL; TIMOPTIC 0.5%1 DRO1 LEFT EYE; TRUSOPT10 ML LEFT EYE; Tetracaine 0.5% Opth 4ml Soln LEFT EYE ONE; XARELTO10 MG ORAL
--- NOTE | 2019-04-07 16:16 | NUR ---
ED Nurse Note: patient brought in by yariel casarez due to left eye possible corneal abrasion, patient is alert awake ambulatory with assistance, breathing unlabored and even.
[2019-04-07 17:43] LABS: ANION GAP 9 mmol/L (5-15); BLOOD UREA NITROGEN 26 mg/dL (7-18); CALCIUM 10.1 MG/DL (8.5-10.1); CARBON DIOXIDE 27 MMOL/L (21-32); CHLORIDE 103 MMOL/L (98-107); CREATININE 0.9 MG/DL (0.55-1.30); SODIUM 139 MMOL/L (136-145)
[2019-04-07 17:48] LABS: ALANINE AMINOTRANSFERASE 15 U/L (12-78); ALBUMIN 3.9 G/DL (3.4-5.0); ALKALINE PHOSPHATASE 129 U/L (46-116); ASPARTATE AMINO TRANSFERASE 12 U/L (15-37); BILIRUBIN,TOTAL 0.3 MG/DL (0.2-1.0)
[2019-04-07 17:52] LABS: BASOPHILS % (AUTO) 1.1 % (0.0-2.0); EOSINOPHILS % (AUTO) 1.2 % (0.0-3.0); HEMATOCRIT 46.3 % (37.0-47.0); LYMPHOCYTES % (AUTO) 22.9 % (20.0-45.0); MEAN CORPUSCULAR VOLUME 79 FL (80-99); MONOCYTES % (AUTO) 8.4 % (1.0-10.0); NEUTROPHILS % (AUTO) 66.3 % (45.0-75.0); PLATELET COUNT 206 K/UL (150-450); RED BLOOD COUNT 5.86 M/UL (4.20-5.40); RED CELL DISTRIBUTION WIDTH 13.7 % (11.6-14.8); WHITE BLOOD COUNT 7.8 K/UL (4.8-10.8)
[2019-04-07 17:55] VITALS: BP 216/92
--- NOTE | 2019-04-07 18:00 | NUR ---
clinicals and face sheet faxed to [facility]
--- NOTE | 2019-04-07 18:05 | Emergency Room Report ---
History of Present Illness General Chief Complaint: Eye Problems Source: Patient, Medical Record Present Illness HPI 88-year-old presents ED for evaluation. Brought in from [facility] facility for evaluation of left eye pain. Concern for corneal ulceration. States she's had pain in his eye for a long time. Cannot see properly from this eye. Pain is dull, 7 out of 10, nonradiating. Denies fevers or chills. Denies any discharge. No other aggravating relieving factors. Denies any other associated symptoms Allergies: Coded Allergies: No Known Allergies (Unverified , 08/08/17) Patient History Past Medical History: AFib, COPD, dementia Past Surgical History: none Pertinent Family History: none Social History: Denies: smoking, alcohol use, drug use Now: No Immunizations: UTD Reviewed Nursing Documentation: PMH: Agreed; PSxH: Agreed Nursing Documentation-PMH Hx Cardiac Problems: Yes - A-FIB Hx Hypertension: Yes - HYPERLIPEDEMA Hx COPD: Yes Hx Cancer: No Hx Dementia: Yes Review of Systems All Other Systems: negative except mentioned in HPI Physical Exam Vital Signs Date Time Temp Pulse Resp B/P (MAP) Pulse Ox O2 Delivery O2 Flow Rate FiO2 04/07/19 16:01 97.9 78 16 188/90 (122) 97 Room Air Sp02 EP Interpretation: reviewed, normal General Appearance: no apparent distress, alert, GCS 15, non-toxic Head: normocephalic Eyes: right eye normal inspection, right eye PERRL; left eye fluoroscene uptake - increased uptake in L pupil; bilateral eye EOMI ENT: normal ENT inspection Neck: normal inspection Respiratory: chest non-tender, lungs clear, normal breath sounds, speaking full sentences Cardiovascular #1: regular rate, rhythm, no edema Gastrointestinal: normal inspection Rectal: deferred Genitourinary: no CVA tenderness Musculoskeletal: normal inspection Neurologic: alert, oriented x3, responsive, motor strength/tone normal, sensory intact, speech normal Psychiatric: normal inspection Skin: normal inspection Lymphatic: normal inspection Medical Decision Making Diagnostic Impression: Primary Impression: Corneal ulceration Qualified Codes: H16.002 - Unspecified corneal ulcer, left eye Additional Impression: Hypertension Qualified Codes: I10 - Essential (primary) hypertension ER Course Hospital Course 88-year-old female presents to ED with left eye pain Differential diagnoses include: conjunctivitis, traumatic iritis, foreign body, corneal abrasion Clinical course Patient placed on stretcher. After initial history, I applied tetracaine and Fluorescin to the affected eye. Using Wood's lamp I examined the eyes. There is pronounced increase intake of fluorescin to the left eye. I discussed case with ophthalmology. Highly concerned for corneal ulceration with possible perforation. Ophthalmology not available here at [facility] to evaluate patient. Patient will require higher level of care transfer to [facility] BP elevated - given clonidine in ED Diagnosis - corneal ulceration, hypertension transferred in serious condition Labs Test 04/07/19 17:20 White Blood Count 7.8 K/UL (4.8-10.8) Red Blood Count 5.86 M/UL (4.20-5.40) Hemoglobin 15.0 G/DL (12.0-16.0) Hematocrit 46.3 % (37.0-47.0) Mean Corpuscular Volume 79 FL (80-99) Mean Corpuscular Hemoglobin 25.6 PG (27.0-31.0) Mean Corpuscular Hemoglobin Concent 32.3 G/DL (32.0-36.0) Red Cell Distribution Width 13.7 % (11.6-14.8) Platelet Count 206 K/UL (150-450) Mean Platelet Volume 7.3 FL (6.5-10.1) Neutrophils (%) (Auto) 66.3 % (45.0-75.0) Lymphocytes (%) (Auto) 22.9 % (20.0-45.0) Monocytes (%) (Auto) 8.4 % (1.0-10.0) Eosinophils (%) (Auto) 1.2 % (0.0-3.0) Basophils (%) (Auto) 1.1 % (0.0-2.0) Sodium Level 139 MMOL/L (136-145) Potassium Level 4.0 MMOL/L (3.5-5.1) Chloride Level 103 MMOL/L (98-107) Carbon Dioxide Level 27 MMOL/L (21-32) Anion Gap 9 mmol/L (5-15) Blood Urea Nitrogen 26 mg/dL (7-18) Creatinine 0.9 MG/DL (0.55-1.30) Estimat Glomerular Filtration Rate mL/min (>60) Glucose Level 112 MG/DL (74-106) Calcium Level 10.1 MG/DL (8.5-10.1) Total Bilirubin 0.3 MG/DL (0.2-1.0) Aspartate Amino Transf (AST/SGOT) 12 U/L (15-37) Alanine Aminotransferase (ALT/SGPT) 15 U/L (12-78) Alkaline Phosphatase 129 U/L (46-116) Total Protein 7.9 G/DL (6.4-8.2) Albumin 3.9 G/DL (3.4-5.0) Globulin 4.0 g/dL Albumin/Globulin Ratio 1.0 (1.0-2.7) Last Vital Signs Date Time Temp Pulse Resp B/P (MAP) Pulse Ox O2 Delivery O2 Flow Rate FiO2 04/07/19 17:57 216/92 04/07/19 17:55 97.9 69 21 99 Room Air Status: unchanged Disposition: XFER SHT-TRM HOSP Condition: Serious Referrals: Felipe Bacon DO (PCP) Ze Bateman MD April 07, 2019 18:05
--- NOTE | 2019-04-07 18:46 | NUR ---
SPOKE TO COLLIN REGARDING THE TRANSFER WILL CALL BACK SOON OPTHALMOLOGIST CALL BACK
--- NOTE | 2019-04-07 19:03 | NUR ---
HAND-OFF: Report given to Jami HORTON. patient is stable in bed
--- NOTE | 2019-04-07 19:05 | NUR ---
ED Nurse Note: Confirmed with ERCN, pt endorsement will not be give until 2029. Attempts will be made until 2029 for HLOC. Will await further orders and will monitor pt closely.
--- NOTE | 2019-04-07 19:44 | NUR ---
ED Nurse informed ermd that administration of clonidine was unable to be done. [facility] will not allow to pull another clonidine due to narrow adminstration window (1800). awaiting further orders
--- NOTE | 2019-04-07 19:45 | NUR ---
ED Nurse Note: recycled BP 119/94. informed ERMD. Per ERMD, no need to administer clonidine at this time.
--- NOTE | 2019-04-07 20:23 | NUR ---
ED Nurse Note: telephone report given to tiburcio Courtney from [facility]
[2019-04-07 20:33] VITALS: BP 161/100
--- NOTE | 2019-04-07 20:39 | NUR ---
ED Nurse Note: Life line unit 402 at bedside, pt ambulated to bedside commode and urinated prior to departure. pt is aox2, pt shows no signs of distress or pain at the moment. pt vss, skin intact. pt belonings have been given to [facility].
== END 2019-04-07 20:35 | disposition short-term general hospital (02) ==
LOC: EDBD 16:16 → EDBEDREQ 16:43 → EMR 17:03 → 4E 17:06 → UNDOADMIN 17:06 → EDBEDREQ 17:14
DX: H16.002 Unspecified corneal ulcer, left eye (principal); I10 Essential (primary) hypertension; J44.9 Chronic obstructive pulmonary disease, unspecified; F03.90 Unspecified dementia, unspecified severity, without behavioral disturbance, psychotic disturbance, mood disturbance, and anxiety; E78.5 Hyperlipidemia, unspecified
CPT/HCPCS: 36415; 80053; 85025; 99283